=== PATIENT | female | born 1930 | race Caucasian/White ===

== ENCOUNTER 2017-09-17 14:26 | Outpatient (CLI) | payer MEDICARE | END 2017-09-17 14:27 | disposition home or self-care (01) | LOC: BICMAMMO 14:26 | PROVIDERS: ATTEND Internal Medicine | DX: Z08 Encounter for follow-up examination after completed treatment for malignant neoplasm (principal); N64.89 Other specified disorders of breast; Z85.3 Personal history of malignant neoplasm of breast; Z80.3 Family history of malignant neoplasm of breast | CPT/HCPCS: 76642; 77066; G0279 ==

== ENCOUNTER → 2017-09-27 | Day surgery (SDC) | payer MEDICARE | LOC: BICULT 08:50 | PROVIDERS: ATTEND Internal Medicine | PROC: 0H9U3ZX Drainage of Left Breast, Percutaneous Approach, Diagnostic (ICD-10-PCS; principal; 2017-09-27) | DX: C50.312 Malignant neoplasm of lower-inner quadrant of left female breast (principal) | CPT/HCPCS: 19100; 76942; 88305 ==

== ENCOUNTER 2017-10-22 17:05 | Outpatient (CLI) | payer MEDICARE ==
[2017-10-22 17:50] LABS: #Eosinphils 0.1 thou/uL (0.0-0.7); #Lymphocytes 1.1 thou/uL (1.20-3.40); #Monocytes 0.6 thou/uL (0.11-0.59); #Neutrophils 3.4 thou/uL (1.40-6.50); %Basophils 0.6 % (0.0-1.0); %Eosinophils 2.6 % (0.0-10.0); %Lymphocytes 21.6 % (21.0-51.0); %Monocytes 10.9 % (0.0-10.0); %Neutrophils 64.4 % (42.0-75.0); Hemoglobin 12.4 g/dL (12.0-16.0); Mean Corpuscular HGB CONC 33.7 g/dL (32.0-36.0); Mean Corpuscular Hemoglobin 30.8 pg (27.0-31.0); Mean Corpuscular Volume 91.2 fl (81.0-99.0); Mean Platelet Volume 6.7 fL (7.4-10.4); Platelet Count 194 thou/uL (130-400); RBC Distribution Width 12.2 % (11.5-14.5); Red Blood Cell (RBC) Count 4.04 mill/uL (4.20-5.40); White Blood Cell (WBC) Count 5.2 thou/uL (4.8-10.8)
[2017-10-22 18:11] LABS: ALT (SGPT) 11 U/L (8-55); AST (SGOT) 22 U/L (5-34); Albumin 4.2 g/dL (3.4-4.8); Alkaline Phosphatase 72 U/L (40-150); Anion Gap 10 mmol/L (10-20); BUN (Urea Nitrogen) 13 mg/dL (9.8-20.1); Bilirubin, Total 0.4 mg/dL (0.2-1.2); Calc. Creatinine Clearance 0 mL/min (70-130); Carbon Dioxide 27 mmol/L (23-31); Chloride 102 mmol/L (98-107); Estimated GFR-MDRD 39; Globulin 3.3 g/dL (2.4-3.5); Glucose 101 mg/dL (83-110); Potassium 4.3 mmol/L (3.5-5.1); Protein, Total 7.5 g/dL (6.0-8.3); Sodium 135 mmol/L (136-145)
--- NOTE | 2017-10-23 23:48 | EKG ---
Test Reason : Blood Pressure : / mmHG Vent. Rate : 065 BPM Atrial Rate : 065 BPM P-R Int : 138 ms QRS Dur : 080 ms QT Int : 424 ms P-R-T Axes : 064 -26 041 degrees QTc Int : 440 ms Normal sinus rhythm Normal ECG No previous ECGs available Confirmed by EMILY CARLOS, DR. Robles ([id number]) on 10/23/2017 11:48:00 PM Referred By: TIAGO Confirmed By:DR. Travis DIAZ MD
== END 2017-10-22 17:06 | disposition home or self-care (01) ==
LOC: LABBT 17:05
PROVIDERS: ATTEND Surgery
DX: Z01.818 Encounter for other preprocedural examination (principal); C50.912 Malignant neoplasm of unspecified site of left female breast
CPT/HCPCS: 80053; 85025; 93005; 93010

== ENCOUNTER 2017-10-22 17:15 | Inpatient (IN) | payer MEDICARE ==
[2017-10-22 17:23] VITALS: BMI 21.5
[2017-10-24] MEDS ORDERED: Lidocaine 2% 10 ML INJ ONE (11:47)
[2017-10-24] MEDS ORDERED: Bupivacaine/Epinephrine 0.25% 30 ML VIAL ONE (11:47)
[2017-10-24] MEDS ORDERED: Isosulfan Blue 50 MG/5 ML VIAL ONE (11:47)
[2017-10-24] MEDS ORDERED: Fentanyl 100 MCG/2 ML VIAL ONE (11:58)
[2017-10-24] MEDS ORDERED: Midazolam HCl 2 mg/2 ml Vial ONE (11:58)
[2017-10-24] MEDS ORDERED: Dexamethasone 20 MG/5 ML VIAL ONE (12:07)
[2017-10-24] MEDS ORDERED: PROPOFOL 200 MG/20 ML VIAL ONE (12:07)
[2017-10-24] MEDS ORDERED: Esmolol 100 MG/10 ML VIAL ONE (12:07)
[2017-10-24] MEDS ORDERED: Ondansetron HCl/PF 4 MG/2 ML Vial ONE (12:07)
[2017-10-24] MEDS ORDERED: Ketorolac Tromethamine 30 MG/ML VIAL ONE (12:07)
[2017-10-24] MEDS ORDERED: Metoclopramide HCl 10 MG/2 ML VIAL ONE (12:07)
[2017-10-24] MEDS ORDERED: Lidocaine 1% PF 5 ML VIAL ONE (12:07)
--- NOTE | 2017-10-24 12:22 | NM ---
RADIONUCLIDE LYMPHOSCINTIGRAPHY LEFT BREAST: History: Left breast cancer. FINDINGS: Sulfur colloid injected at the periareolar skin of the left breast is seen on imaging. Imaging sergio d out to 3 hours shows no focal uptake at the left axilla or mediastinum. IMPRESSION: Nonvisualization of left breast sentinel lymph node at 3 hours. POS: [facility]
[2017-10-24] MEDS ORDERED: Dextrose 50% Abboject 50 ML SYRINGE SLOW IVP PRN (13:42)
[2017-10-24] MEDS ORDERED: Ondansetron HCl/PF 4 MG/2 ML Vial IVP PRN (13:42)
[2017-10-24] MEDS ORDERED: HYDROcodone/Acetaminophen 10/325 mg Tablet PO PRN (13:42)
[2017-10-24] MEDS ORDERED: Dextrose 5% in Water 1,000 ML IV PRN (13:42)
[2017-10-24] MEDS ORDERED: Promethazine HCl 25 MG/ML VIAL IM PRN (13:42)
[2017-10-24] MEDS ORDERED: hydrALAZINE 20 MG/ML VIAL SLOW IVP PRN (13:42)
[2017-10-24] MEDS ORDERED: Morphine 4 MG/ML VIAL SLOW IVP PRN ×2 (13:42)
--- NOTE | 2017-10-24 13:55 | OP ---
DATE OF PROCEDURE: 10/24/2017 PREOPERATIVE DIAGNOSIS: Recurrent left breast cancer. SURGEON: Aroldo Salas M.D. PROCEDURE PERFORMED: Attempted sentinel node biopsy and left total mastectomy. INDICATIONS: This is an 87-year-old female who has had a previous lumpectomy and axillary dissection about 20 years ago for breast cancer and had an abnormal mammogram. 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 FINDINGS: No sentinel nodes were found. In fact, no nodes were left in the axilla, so just a total mastectomy was performed. PROCEDURE IN DETAIL: After informed consent was obtained, the patient had undergone placement of rad ionucleotide in the Nuclear Medicine Department. They waited for many hours, really never saw any ac tivity in the axilla. She was taken to the operating room where she underwent general endotracheal a nesthesia, injected 3 mL of Lymphazurin subareola. Her breast and axilla were prepped and draped in the usual fashion. A Neoprobe was used with baseline counts of 12. The highest I could find was 25. I looked for a node. The proposed mastectomy was drawn out. An incision made in the lateral aspec t of this area, traced it down to the area. Really there was nothing to dissect out. All the nodes were basically gone. So, I really could not do a sentinel node. An elliptical incision was performe d utilizing the plasma blade and a plane developed between subcutaneous tissue and the breast tissue utilizing the plasma blade to the level of clavicle superior, sternum medially, latissimus lateral an d the rectus inferiorly. It was then removed from the pectoralis muscle to include the pectoralis fa scia utilizing the plasma blade. Hemostasis achieved with the plasma blade. The breast was marked w ith a suture superior, sent to pathology for further analysis. Hemostasis was achieved with plasma b lade. The chest was thoroughly irrigated with saline. Hemostasis assured. Two drains were placed a nd brought out through separate stab wounds. The subcu reapproximated with interrupted 3-0 Vicryl. Skin closed with a running subcuticular 4-0 Rapide. Steri-Strips applied. Sterile bandage applied. The patient tolerated the procedure well and was transferred to recovery in good condition. Sponge and needle count verified correct x2.
[2017-10-24] MEDS: D5 1/2 NS w/20 mEq KCL 1,000 ML IV SCH (16:34)
[2017-10-24] MEDS: Lactated Ringer's 1,000 ML IV SCH (16:35)
[2017-10-24] MEDS: HYDROcodone/Acetaminophen 10/325 mg Tablet PO PRN (16:39)
[2017-10-24] MEDS: Docusate 100 MG CAP PO SCH (22:03)
[2017-10-25] MEDS: HYDROcodone/Acetaminophen 10/325 mg Tablet PO PRN (00:29)
[2017-10-25] MEDS: Lactated Ringer's 1,000 ML IV SCH (04:12)
[2017-10-25 05:45] LABS: #Lymphocytes 0.4 thou/uL (1.20-3.40); #Monocytes 0.8 thou/uL (0.11-0.59); #Neutrophils 8.8 thou/uL (1.40-6.50); %Basophils 0.2 % (0.0-1.0); %Eosinophils 0.1 % (0.0-10.0); %Lymphocytes 4.1 % (21.0-51.0); %Monocytes 7.8 % (0.0-10.0); %Neutrophils 87.9 % (42.0-75.0); Hemoglobin 10.6 g/dL (12.0-16.0); Mean Corpuscular HGB CONC 33.6 g/dL (32.0-36.0); Mean Corpuscular Hemoglobin 30.9 pg (27.0-31.0); Mean Corpuscular Volume 92.1 fl (81.0-99.0); Mean Platelet Volume 6.9 fL (7.4-10.4); Platelet Count 181 thou/uL (130-400); RBC Distribution Width 12.1 % (11.5-14.5); Red Blood Cell (RBC) Count 3.44 mill/uL (4.20-5.40)
[2017-10-25 06:08] LABS: Anion Gap 10 mmol/L (10-20); BUN (Urea Nitrogen) 19 mg/dL (9.8-20.1); Calc. Creatinine Clearance 26 mL/min (70-130); Calcium 8.5 mg/dL (7.8-10.44); Carbon Dioxide 24 mmol/L (23-31); Chloride 102 mmol/L (98-107); Estimated GFR-MDRD 38; Glucose 131 mg/dL (83-110); Potassium 4.3 mmol/L (3.5-5.1); Sodium 132 mmol/L (136-145)
[2017-10-25] MEDS: D5 1/2 NS w/20 mEq KCL 1,000 ML IV SCH (07:51)
[2017-10-25] MEDS ORDERED: Famotidine 20 MG TAB PO SCH (09:00)
[2017-10-25] MEDS ORDERED: Enoxaparin Sodium 30 MG/0.3 ML SYRINGE SC SCH (09:00)
[2017-10-25] MEDS: Docusate 100 MG CAP PO SCH (09:50)
[2017-10-25 11:46] VITALS: BP 152/76; TEMP 97.6
--- NOTE | 2017-10-30 09:35 | DIS ---
DISCHARGE DIAGNOSIS: Recurrent left breast cancer. PROCEDURES DURING ADMISSION: Left total mastectomy with attempted sentinel node biopsy. HOSPITAL COURSE: The patient was admitted, taken to the operating room. We attempted to do a sentin el node, but she has had a previous axillary dissection. The radionucleotide did not show any nodes and I could not find any with both the Neoprobe nor with injection of Lymphazurin, so we just did a t otal mastectomy. Postoperatively, she has done well. Pain is minimal. Drain output is low. She is now discharged home in good condition on hydrocodone and Zofran. She will follow up with me in 2 we eks.
== END 2017-10-25 15:10 | disposition home or self-care (01) | DRG 583 ==
LOC: SURG A 10-24 06:46
PROVIDERS: ADMIT Surgery; ATTEND Surgery
PROC: 0HTU0ZZ Resection of Left Breast, Open Approach (ICD-10-PCS; principal; 2017-10-24)
DX: C50.912 Malignant neoplasm of unspecified site of left female breast (principal); Z85.3 Personal history of malignant neoplasm of breast; Z79.82 Long term (current) use of aspirin; E03.9 Hypothyroidism, unspecified; I10 Essential (primary) hypertension; E78.00 Pure hypercholesterolemia, unspecified; K21.9 Gastro-esophageal reflux disease without esophagitis; Z92.21 Personal history of antineoplastic chemotherapy; Z88.0 Allergy status to penicillin; Z88.8 Allergy status to other drugs, medicaments and biological substances; Z17.0 Estrogen receptor positive status [ER+]; Z01.818 Encounter for other preprocedural examination
CPT/HCPCS: 36415; 78195; 80048; 80053; 85025; 88307; 93005; 93010; A9541; J0360; J1100; J1650; J1885; J1956; J2001; J2250; J2270; J2405; J2704; J2765; J3010; Q9968

== ENCOUNTER 2017-10-26 14:04 | Emergency (ER) | payer MEDICARE | END 2017-10-26 15:30 | disposition home or self-care (01) | LOC: ERS 14:04 | DX: L76.21 Postprocedural hemorrhage of skin and subcutaneous tissue following a dermatologic procedure (principal); E03.9 Hypothyroidism, unspecified; K21.9 Gastro-esophageal reflux disease without esophagitis; E78.5 Hyperlipidemia, unspecified; I10 Essential (primary) hypertension; F41.9 Anxiety disorder, unspecified; G62.9 Polyneuropathy, unspecified; Z85.3 Personal history of malignant neoplasm of breast; Z79.82 Long term (current) use of aspirin; Z79.899 Other long term (current) drug therapy | CPT/HCPCS: 99283 ==

== ENCOUNTER 2017-11-20 09:11 | Outpatient (CLI) | payer MEDICARE ==
--- NOTE | 2017-11-20 12:06 | CT ---
CT THORAX WITH IV CONTRAST CT ABDOMEN AND PELVIS WITH IV CONTRAST: Date: 11-20-17 History: Malignant neoplasm left breast. Comparison: None available. FINDINGS: CT THORAX: Post-surgical changes related to left mastectomy are noted. There is a rounded area of parenchymal opacity with associated calcifications seen in the left lung. Parenchymal opacity was seen in this region on prior chest x-rays obtained from [facility] [place] on 08-31-15 as well as 08-25-14. Mild pleural and parenchymal scarring is seen in each lung apex. There is mild dependent atelectasis present posteriorly and at the right lung base. No discrete pulm onary nodule, mass, or pleural effusion is identified. No enlarged lymph nodes are seen by CT size criteria. Vascular calcifications are seen in the coronary arteries as well as involving the thoracic aorta. No lytic or sclerotic osseous lesions are identified. CT ABDOMEN AND PELVIS: There is geographic area of diminished attenuation within the left hepatic lobe which could be relate d to fatty infiltration. Also within the left hepatic lobe and adjacent to the falciform ligament, th ere is a small subcentimeter low density focus noted which is nonspecific. There is a subcentimeter too small to characterize hypodense lesion within the superior pole right ki dney. The spleen, pancreas, bilateral adrenal glands, left kidney, opacified bowel, and urinary bladder dem onstrate a normal CT appearance. A small amount of retained fecal material is seen throughout the col on. Vascular calcifications are seen in the abdominal aorta and iliac arteries. Surgical clips are seen i n a right paracaval location and adjacent to the right common iliac artery. No enlarged lymph nodes are seen by CT size criteria. There is no free fluid or fluid collection seen in the abdomen or pelvis. The uterus is not visualized likely related to prior hysterectomy. There is anterolisthesis of L4 on L5, probably related to facet degenerative changes at this level. N o lytic or osseous lesions are seen. There is a sclerotic density seen within the right sacral ala, p robably related to a bone island. IMPRESSION: 1. Parenchymal lung changes left lung apex with associated calcifications. Parenchymal opacity was se en in this region on prior chest x-rays. Findings are likely related to asymmetric biapical pleural a nd parenchymal scarring with calcifications in the left lung apex. 2. No CT findings to suggest metastatic disease. 3. Post-surgical changes related to left mastectomy. 4. Post-surgical changes of the abdomen. 5. Subcentimeter too small to characterize hypodense lesion in the left hepatic lobe with slight dimi nished attenuation left hepatic lobe which may be related to fatty infiltration. 6. Too small to characterize hypodense lesion right kidney. 7. Hysterectomy. 8. Grade I anterolisthesis of L4 on L5. POS: [facility]
--- NOTE | 2017-11-20 14:18 | NM ---
WHOLE BODY BONE SCAN: 11/20/2017 HISTORY: Malignant neoplasm, lower inner quadrant, left breast. RADIOPHARMACEUTICAL: Technetium 99m labeled MDP 32 millicuries IV. VIEWS OBTAINED: Anterior-posterior whole body. COMPARISON: 04/01/2003 FINDINGS: There is mild nonspecific soft tissue uptake involving the right breast. There is a focal area of increased uptake involving the left knee, likely degenerative in origin. Th e previously described area of uptake within the left sacrum is not well delineated on this exam. Th ere is mildly increased uptake in the shoulders bilaterally, likely in a degenerative pattern as well . There are no additional areas of abnormal uptake of radiotracer seen throughout the visualized axi llary or appendicular skeleton. Normal activity is seen in the bilateral kidneys and urinary bladder . IMPRESSION: No scintigraphic findings to suggest osseous metastatic disease. POS: [facility]
== END 2017-11-20 09:12 | disposition home or self-care (01) ==
LOC: CT 09:11
PROVIDERS: ATTEND Internal Medicine Hematology & Oncology
DX: C50.312 Malignant neoplasm of lower-inner quadrant of left female breast (principal); I70.0 Atherosclerosis of aorta; K76.9 Liver disease, unspecified; N28.9 Disorder of kidney and ureter, unspecified; M43.16 Spondylolisthesis, lumbar region; J98.4 Other disorders of lung; R91.8 Other nonspecific abnormal finding of lung field; Z98.890 Other specified postprocedural states; Z90.12 Acquired absence of left breast and nipple; Z90.710 Acquired absence of both cervix and uterus
CPT/HCPCS: 71260; 74177; 78306; 82565; A9503

== ENCOUNTER 2018-02-13 14:56 | Outpatient (CLI) | payer MEDICARE | END 2018-02-13 14:57 | disposition home or self-care (01) | LOC: BICMAMMO 14:56 | PROVIDERS: ATTEND Internal Medicine Hematology & Oncology | DX: Z13.820 Encounter for screening for osteoporosis (principal); N95.9 Unspecified menopausal and perimenopausal disorder; C50.919 Malignant neoplasm of unspecified site of unspecified female breast; M85.88 Other specified disorders of bone density and structure, other site | CPT/HCPCS: 77080 ==

== ENCOUNTER 2018-09-30 14:04 | Outpatient (CLI) | payer MEDICARE ==
--- NOTE | 2018-09-30 15:04 | MMO ---
Right Breast MAMMO Unilat Diag DDI RT+LILIYA. CLINICAL HISTORY: Patient is 88 years old and is seen for diagnostic exam. The patient has the following family history of breast cancer: mother, at age 79. The patient has a history of malignant (generic) in the left breast in January,. The patient has a history of right Stereotatic Biopsy in June, - benign and left Lumpectomy in January, - malignant. VIEWS: The views performed were: right craniocaudal with tomosynthesis; right mediolateral oblique with tomosynthesis; and right mediolateral. FILMS COMPARED: The present examination has been compared to prior imaging studies performed at [facility] on 08/21/2013, 08/25/2014, 08/31/2015, 09/01/2016 and 09/17/2017. MAMMOGRAM FINDINGS: The breast is heterogeneously dense, which could obscure a lesion on mammography. Finding 1: There is a stable area of skin thickening seen in the right breast. Finding 2: There is a stable biopsy clip seen in the right breast. Finding 3: There are benign appearing calcifications seen in the right breast. There are no suspicious masses, suspicious calcifications, or new areas of architectural distortion. IMPRESSION: THERE IS NO MAMMOGRAPHIC EVIDENCE OF MALIGNANCY. A ROUTINE FOLLOW-UP MAMMOGRAM IN 1 YEAR IS RECOMMENDED. THE RESULTS OF THIS EXAM WERE SENT TO THE PATIENT. ACR BI-RADS Category 2 - Benign finding MAMMOGRAPHY NOTE: 1. A negative mammogram report should not delay a biopsy if a dominant of clinically suspicious mass is present. 2. Approximately 10% to 15% of breast cancers are not detected by mammography. 3. Adenosis and dense breasts may obscure an underlying neoplasm.
== END 2018-09-30 14:05 | disposition home or self-care (01) ==
LOC: BICMAMMO 14:04
PROVIDERS: ATTEND Internal Medicine Hematology & Oncology
DX: C50.312 Malignant neoplasm of lower-inner quadrant of left female breast (principal); Z80.3 Family history of malignant neoplasm of breast; Z98.890 Other specified postprocedural states
CPT/HCPCS: 77065; G0279

== ENCOUNTER 2019-02-20 15:26 | Outpatient (CLI) | payer MEDICARE ==
--- NOTE | 2019-02-20 16:14 | BD ---
Exam: DEXA Bone Density 02/20/19 HISTORY: 89-year-old female with postmenopausal screening for osteoporosis. FINDINGS: Right hip: BMD (g/cm2) T-SCORE Neck: 0.728 -1.1 Total: 0.803 -1.1 Left hip: Neck: 0.675 -1.6 Total: 0.853 -0.7 The ten year fracture risk for a major osteoporotic fracture is 12% and for hip fracture is 3.4%. Impression: Osteopenia. POS: [facility]
== END 2019-02-20 15:27 | disposition home or self-care (01) ==
LOC: BICMAMMO 15:26
PROVIDERS: ATTEND Internal Medicine Hematology & Oncology
DX: Z13.820 Encounter for screening for osteoporosis (principal); T38.6X5A Adverse effect of antigonadotrophins, antiestrogens, antiandrogens, not elsewhere classified, initial encounter; M85.851 Other specified disorders of bone density and structure, right thigh; M85.852 Other specified disorders of bone density and structure, left thigh
CPT/HCPCS: 77080

== ENCOUNTER 2019-02-21 14:59 | Outpatient (CLI) | payer MEDICARE ==
[~2019-02-21 14:59] MED LIST: Gadobenate Dimeglumine 529 MG/1 ML (20ML VIAL) ONE
--- NOTE | 2019-02-21 16:51 | MRI ---
MRI OF BRAIN WITH AND WITHOUT CONTRAST: 02/21/19 INDICATIONS: Dizziness. FINDINGS: Mild cortical volume loss. Mild chronic ischemic white matter change. No evidence of restricted diffu [place]. No mass, edema or acute infarct apparent. Images of the internal auditory canals was performed with IAC protocol. 3D T2 acquisition shows normal appearing 7th and 8th cranial nerves. Postcontrast images show no abnormal enhancement in either internal auditory canal. There is no evide nce of acoustic schwannoma. No abnormal enhancement in the brain. IMPRESSION: Mild cortical volume loss and mild chronic ischemic white matter changes in both cerebral hemispheres . No acute process. Unremarkable internal auditory canals. POS: [facility]
== END 2019-02-21 15:00 | disposition home or self-care (01) ==
LOC: BICMRI 14:59
PROVIDERS: ATTEND Specialist
DX: R42 Dizziness and giddiness (principal); I67.82 Cerebral ischemia
CPT/HCPCS: 70553; 82565; A9577

== ENCOUNTER 2020-08-18 21:01 | Inpatient (IN) | payer MEDICARE ==
[2020-08-18 21:58] LABS: #Lymphocytes 0.8 thou/uL (1.20-3.40); #Monocytes 0.6 thou/uL (0.11-0.59); #Neutrophils 5.7 thou/uL (1.40-6.50); %Basophils 0.4 % (0.0-1.0); %Eosinophils 0.5 % (0.0-10.0); %Lymphocytes 10.9 % (21.0-51.0); %Monocytes 8.9 % (0.0-10.0); %Neutrophils 79.3 % (42.0-75.0); Hemoglobin 11.8 g/dL (12.0-16.0); Mean Corpuscular Hemoglobin 35.1 pg (27.0-31.0); Mean Platelet Volume 7.2 fL (7.4-10.4); Platelet Count 168 thou/uL (130-400); RBC Distribution Width 11.9 % (11.5-14.5); Red Blood Cell (RBC) Count 3.36 mill/uL (4.20-5.40); White Blood Cell (WBC) Count 7.2 thou/uL (4.8-10.8)
[2020-08-18 22:26] LABS: ALT (SGPT) 17 U/L (8-55); AST (SGOT) 18 U/L (5-34); Alkaline Phosphatase 81 U/L (40-110); Anion Gap 15 mmol/L (10-20); BUN (Urea Nitrogen) 17 mg/dL (9.8-20.1); Bilirubin, Total 0.8 mg/dL (0.2-1.2); Calc. Creatinine Clearance 0 mL/min (70-130); Carbon Dioxide 23 mmol/L (23-31); Chloride 100 mmol/L (98-107); Globulin 3.3 g/dL (2.4-3.5); Glucose 117 mg/dL (83-110); Potassium 3.9 mmol/L (3.5-5.1); Protein, Total 7.3 g/dL (5.8-8.1); Sodium 134 mmol/L (136-145)
[2020-08-18] MEDS ORDERED: Acetaminophen 325 MG TAB ONE (23:50)
[2020-08-18 23:59] LABS: CKMB 1.1 ng/mL (0-6.6)
[2020-08-19] MEDS: Sodium Chloride 0.9% 1,000 ML IV SCH ×2 (02:20→11:36)
[2020-08-19 02:29] LABS: Troponin I 0.056 ng/mL (< 0.028)
[2020-08-19] MEDS ORDERED: Aspirin Chewable 81 MG TAB ONE (04:10)
[2020-08-19 04:33] LABS: SARS-CoV-2 PCR by NAA Not Detected (NotDetected)
[2020-08-19 05:05] LABS: Bacteria/HPF 2+ HPF (None Seen); Bilirubin Negative (Negative); Blood, Urine Negative (Negative); Clarity Turbid (Clear); Glucose, Urine (Dipstick) Normal (Negative); Ketone, Urine Trace mg/dL (Negative); Leukocyte 500 Leu/uL (Negative); Nitrite Negative (Negative); Protein, Urine (Dipstick) 10 mg/dL (Neg-Trace); RBC/HPF 0-3 HPF (0-3); Specific Gravity, Urine 1.013 (1.002-1.036); Squamous Epithelial None Seen HPF (0-3); Urobilinogen Normal mg/dL (Less than 2); WBC/HPF Greater than 50 HPF (0-3); pH, Urine 6.5 (5.0-9.0)
[2020-08-19 05:17] LABS: Troponin I 0.076 ng/mL (< 0.028)
[2020-08-19] MEDS ORDERED: Ondansetron ODT 4 MG TAB PO PRN (06:31)
[2020-08-19] MEDS ORDERED: Ondansetron PF 4 MG/2 ML Vial IVP PRN (06:31)
[2020-08-19] MEDS ORDERED: Enoxaparin Sodium 40 MG/0.4 ML SYRINGE ONE ×2 (08:46→08:47)
[2020-08-19] MEDS ORDERED: cefTRIAXone\\ROCEPHIN 1 GM VIAL ONE (08:46)
[2020-08-19] MEDS: Enoxaparin Sodium 40 MG/0.4 ML SYRINGE SC SCH (08:54)
[2020-08-19] MEDS: cefTRIAXone\\ROCEPHIN 1 GM in Sodium Chloride 0.9% 100 ML IVPB SCH (09:00)
[2020-08-19 11:04] LABS: CKMB 1.2 ng/mL (0-6.6)
[2020-08-19] MEDS ORDERED: Acetaminophen 325 MG TAB ONE (11:37)
[2020-08-19] MEDS: Acetaminophen 325 MG TAB PO PRN ×2 (11:42→17:27)
[2020-08-19 15:55] VITALS: BMI 23.1
[2020-08-19] MEDS: Divalproex Sodium 250 MG (DR) TAB PO SCH (21:02)
[2020-08-19] MEDS: Atorvastatin Calcium 10 MG TAB PO SCH (21:02)
[2020-08-19] MEDS: Donepezil HCl 5 MG TAB PO SCH (21:02)
[2020-08-19] MEDS: Gabapentin 100 MG CAP PO SCH (21:03)
[2020-08-19] MEDS: Melatonin 3 MG TAB PO SCH (21:04)
[2020-08-20 04:13] LABS: #Basophils 0.1 thou/uL (0.0-0.2); #Eosinphils 0.2 thou/uL (0.0-0.7); #Lymphocytes 0.9 thou/uL (1.20-3.40); #Monocytes 0.8 thou/uL (0.11-0.59); #Neutrophils 4.2 thou/uL (1.40-6.50); %Basophils 1.2 % (0.0-1.0); %Eosinophils 3.8 % (0.0-10.0); %Lymphocytes 13.8 % (21.0-51.0); %Monocytes 13.6 % (0.0-10.0); %Neutrophils 67.7 % (42.0-75.0); Hemoglobin 11.8 g/dL (12.0-16.0); Mean Corpuscular HGB CONC 33.5 g/dL (32.0-36.0); Mean Corpuscular Hemoglobin 33.7 pg (27.0-31.0); Platelet Count 161 thou/uL (130-400); RBC Distribution Width 12.1 % (11.5-14.5); Red Blood Cell (RBC) Count 3.48 mill/uL (4.20-5.40); White Blood Cell (WBC) Count 6.2 thou/uL (4.8-10.8)
[2020-08-20 04:32] LABS: Anion Gap 12 mmol/L (10-20); BUN (Urea Nitrogen) 14 mg/dL (9.8-20.1); Calc. Creatinine Clearance 29 mL/min (70-130); Calcium 8.4 mg/dL (7.8-10.44); Carbon Dioxide 24 mmol/L (23-31); Chloride 104 mmol/L (98-107); Glucose 100 mg/dL (83-110); Sodium 136 mmol/L (136-145)
[2020-08-20] MEDS: Acetaminophen 325 MG TAB PO PRN (08:09)
[2020-08-20] MEDS: hydrALAZINE 20 MG/ML VIAL SLOW IVP PRN (08:10)
[2020-08-20] MEDS ORDERED: Fluticasone Propionate Nasal Spray 16 gm Bottle NASAL PRN (08:40)
[2020-08-20] MEDS ORDERED: Non-Formulary Item 1 EACH (Magnesium [Magnesium] 250 MG Tablet) PO SCH (09:00)
[2020-08-20] MEDS ORDERED: Cyanocobalamin (Vitamin B-12) 1,000 MCG TAB PO SCH (09:00)
[2020-08-20] MEDS ORDERED: Non-Formulary Item 1 EACH (Cyanocobalamin (Vitamin B-12) [Vitamin B12] 2,500 MCG Tablet) PO SCH (09:00)
[2020-08-20] MEDS: Enoxaparin Sodium 40 MG/0.4 ML SYRINGE SC SCH (10:10)
[2020-08-20] MEDS: Magnesium Oxide 250 MG TAB PO SCH (10:11)
[2020-08-20] MEDS: Amlodipine 5 MG TAB PO SCH (10:11)
[2020-08-20] MEDS: Aspirin 81 mg Enteric Coated Tablet PO SCH (10:11)
[2020-08-20] MEDS: Gabapentin 100 MG CAP PO SCH ×2 (10:12→20:06)
[2020-08-20] MEDS: Anastrozole 1 MG TAB PO SCH (10:12)
[2020-08-20] MEDS: Divalproex Sodium 250 MG (DR) TAB PO SCH ×2 (10:25→20:07)
[2020-08-20] MEDS: Levothyroxine Sodium 50 MCG TAB PO SCH (10:26)
[2020-08-20] MEDS: cefTRIAXone\\ROCEPHIN 1 GM in Sodium Chloride 0.9% 100 ML IVPB SCH (10:27)
[2020-08-20 10:50] LABS: Thyroid Stimulating Hormone 2.3948 uIU/mL (0.35-4.94)
[2020-08-20 11:25] LABS: Vitamin B12 Greater than 2000 pg/mL (211-911)
[2020-08-20] MEDS: Aspirin/APAP/Caffeine Tab (Excedrin Migraine) PO PRN (14:01)
[2020-08-20] MEDS: Atorvastatin Calcium 10 MG TAB PO SCH (20:07)
[2020-08-20] MEDS: Donepezil HCl 5 MG TAB PO SCH (20:07)
[2020-08-20] MEDS: Melatonin 3 MG TAB PO SCH (20:08)
[2020-08-20] MEDS: Mirtazapine 15 MG TAB PO SCH (20:08)
[2020-08-21] MEDS: Aspirin/APAP/Caffeine Tab (Excedrin Migraine) PO PRN ×2 (01:51→11:48)
[2020-08-21] MEDS: hydrALAZINE 20 MG/ML VIAL SLOW IVP PRN (05:44)
[2020-08-21] MEDS ORDERED: hydrALAZINE 20 MG/ML VIAL SLOW IVP PRN (08:32)
[2020-08-21] MEDS: Gabapentin 100 MG CAP PO SCH ×2 (08:37→20:16)
[2020-08-21] MEDS: Enoxaparin Sodium 30 MG/0.3 ML SYRINGE SC SCH (08:37)
[2020-08-21] MEDS: Amlodipine 5 MG TAB PO SCH (08:38)
[2020-08-21] MEDS: Magnesium Oxide 250 MG TAB PO SCH (08:38)
[2020-08-21] MEDS: Divalproex Sodium 250 MG (DR) TAB PO SCH ×2 (08:38→20:17)
[2020-08-21] MEDS: Anastrozole 1 MG TAB PO SCH (08:38)
[2020-08-21] MEDS: Aspirin 81 mg Enteric Coated Tablet PO SCH (08:39)
[2020-08-21] MEDS: cefTRIAXone\\ROCEPHIN 1 GM in Sodium Chloride 0.9% 100 ML IVPB SCH (08:39)
[2020-08-21] MEDS: Levothyroxine Sodium 50 MCG TAB PO SCH (08:39)
[2020-08-21] MEDS ORDERED: Polyethylene Glycol 3350 17 GM Packet PO PRN (11:46)
[2020-08-21] MEDS: Senokot S 8.6-50 MG TAB PO PRN (11:57)
[2020-08-21] MEDS: Acetaminophen 325 MG TAB PO PRN (18:56)
[2020-08-21] MEDS: Donepezil HCl 5 MG TAB PO SCH (20:17)
[2020-08-21] MEDS: Melatonin 3 MG TAB PO SCH (20:18)
[2020-08-21] MEDS: Atorvastatin Calcium 10 MG TAB PO SCH (20:18)
[2020-08-21] MEDS: Mirtazapine 15 MG TAB PO SCH (20:18)
[2020-08-22] MEDS: hydrALAZINE 20 MG/ML VIAL SLOW IVP PRN (05:47)
[2020-08-22] MEDS: cefTRIAXone\\ROCEPHIN 1 GM in Sodium Chloride 0.9% 100 ML IVPB SCH (08:48)
[2020-08-22] MEDS: Aspirin 81 mg Enteric Coated Tablet PO SCH (08:49)
[2020-08-22] MEDS: Amlodipine 5 MG TAB PO SCH (08:49)
[2020-08-22] MEDS: Anastrozole 1 MG TAB PO SCH (08:49)
[2020-08-22] MEDS: Enoxaparin Sodium 30 MG/0.3 ML SYRINGE SC SCH (08:50)
[2020-08-22] MEDS: Divalproex Sodium 250 MG (DR) TAB PO SCH ×2 (08:50→21:05)
[2020-08-22] MEDS: Levothyroxine Sodium 50 MCG TAB PO SCH (08:51)
[2020-08-22] MEDS: Polyethylene Glycol 3350 17 GM Packet PO SCH (08:51)
[2020-08-22] MEDS: Magnesium Oxide 250 MG TAB PO SCH (08:51)
[2020-08-22] MEDS: Gabapentin 100 MG CAP PO SCH ×2 (08:51→21:07)
[2020-08-22] MEDS: Aspirin/APAP/Caffeine Tab (Excedrin Migraine) PO PRN (10:17)
[2020-08-22] MEDS: Atorvastatin Calcium 10 MG TAB PO SCH (21:04)
[2020-08-22] MEDS: Donepezil HCl 5 MG TAB PO SCH (21:06)
[2020-08-22] MEDS: Senokot S 8.6-50 MG TAB PO PRN (21:08)
[2020-08-22] MEDS: Melatonin 3 MG TAB PO SCH (21:08)
[2020-08-22] MEDS: Mirtazapine 15 MG TAB PO SCH (21:08)
[2020-08-23] MEDS: Aspirin/APAP/Caffeine Tab (Excedrin Migraine) PO PRN ×2 (05:22→12:13)
[2020-08-23] MEDS ORDERED: Lisinopril 20 MG TAB PO SCH (09:00)
[2020-08-23] MEDS ORDERED: Lisinopril 5 MG TAB PO SCH ×2 (09:00)
[2020-08-23] MEDS: Anastrozole 1 MG TAB PO SCH (09:49)
[2020-08-23] MEDS: Aspirin 81 mg Enteric Coated Tablet PO SCH (09:50)
[2020-08-23] MEDS: Cephalexin 250 MG CAP PO SCH ×2 (09:50→21:10)
[2020-08-23] MEDS: Divalproex Sodium 250 MG (DR) TAB PO SCH ×2 (09:50→21:10)
[2020-08-23] MEDS: Enoxaparin Sodium 30 MG/0.3 ML SYRINGE SC SCH (09:51)
[2020-08-23] MEDS: Gabapentin 100 MG CAP PO SCH ×2 (09:51→21:12)
[2020-08-23] MEDS: Levothyroxine Sodium 50 MCG TAB PO SCH (09:51)
[2020-08-23] MEDS: Magnesium Oxide 250 MG TAB PO SCH (09:52)
[2020-08-23] MEDS: Acetaminophen 325 MG TAB PO PRN (09:52)
[2020-08-23] MEDS: Lisinopril 5 MG TAB PO SCH (09:52)
[2020-08-23] MEDS: Polyethylene Glycol 3350 17 GM Packet PO SCH (10:08)
[2020-08-23] MEDS: cefTRIAXone\\ROCEPHIN 1 GM in Sodium Chloride 0.9% 100 ML IVPB SCH (10:08)
[2020-08-23] MEDS: Donepezil HCl 5 MG TAB PO SCH (21:10)
[2020-08-23] MEDS: Mirtazapine 15 MG TAB PO SCH (21:12)
[2020-08-23] MEDS: Atorvastatin Calcium 10 MG TAB PO SCH (21:12)
[2020-08-23] MEDS: Melatonin 3 MG TAB PO SCH (21:12)
[2020-08-24] MEDS ORDERED: Metoprolol Tartrate 5 MG/5 ML VIAL IVP SCH (02:00)
[2020-08-24 02:08] LABS: #Basophils 0.1 thou/uL (0.0-0.2); #Eosinphils 0.6 thou/uL (0.0-0.7); #Lymphocytes 1.1 thou/uL (1.20-3.40); #Monocytes 0.8 thou/uL (0.11-0.59); #Neutrophils 3.6 thou/uL (1.40-6.50); %Basophils 1.1 % (0.0-1.0); %Eosinophils 9.8 % (0.0-10.0); %Lymphocytes 18.4 % (21.0-51.0); %Monocytes 12.7 % (0.0-10.0); Hemoglobin 12.4 g/dL (12.0-16.0); Mean Corpuscular HGB CONC 34.2 g/dL (32.0-36.0); Mean Corpuscular Hemoglobin 34.4 pg (27.0-31.0); Mean Platelet Volume 6.8 fL (7.4-10.4); Platelet Count 185 thou/uL (130-400); RBC Distribution Width 12.3 % (11.5-14.5); Red Blood Cell (RBC) Count 3.59 mill/uL (4.20-5.40); White Blood Cell (WBC) Count 6.2 thou/uL (4.8-10.8)
[2020-08-24 02:35] LABS: ALT (SGPT) 25 U/L (8-55); AST (SGOT) 29 U/L (5-34); Albumin 3.4 g/dL (3.4-4.8); Alkaline Phosphatase 94 U/L (40-110); Anion Gap 16 mmol/L (10-20); BUN (Urea Nitrogen) 23 mg/dL (9.8-20.1); Bilirubin, Total 0.5 mg/dL (0.2-1.2); Calc. Creatinine Clearance 24 mL/min (70-130); Calcium 8.2 mg/dL (7.8-10.44); Carbon Dioxide 20 mmol/L (23-31); Chloride 97 mmol/L (98-107); Globulin 3.2 g/dL (2.4-3.5); Glucose 100 mg/dL (83-110); Magnesium 2.2 mg/dL (1.6-2.6); Potassium 4.1 mmol/L (3.5-5.1); Protein, Total 6.6 g/dL (5.8-8.1); Sodium 129 mmol/L (136-145)
[2020-08-24] MEDS ORDERED: Sodium Chloride 0.9% 1,000 ML IV SCH (04:00)
[2020-08-24] MEDS: Aspirin 81 mg Enteric Coated Tablet PO SCH (09:32)
[2020-08-24] MEDS: Aspirin/APAP/Caffeine Tab (Excedrin Migraine) PO PRN (09:32)
[2020-08-24] MEDS: Divalproex Sodium 250 MG (DR) TAB PO SCH ×2 (09:32→21:53)
[2020-08-24] MEDS: Cephalexin 250 MG CAP PO SCH ×2 (09:32→21:53)
[2020-08-24] MEDS: Gabapentin 100 MG CAP PO SCH ×2 (09:33→21:54)
[2020-08-24] MEDS: Anastrozole 1 MG TAB PO SCH (09:33)
[2020-08-24] MEDS: Lisinopril 5 MG TAB PO SCH (09:34)
[2020-08-24] MEDS: Levothyroxine Sodium 50 MCG TAB PO SCH (09:34)
[2020-08-24] MEDS: Magnesium Oxide 250 MG TAB PO SCH (09:35)
[2020-08-24] MEDS: Polyethylene Glycol 3350 17 GM Packet PO SCH (09:35)
[2020-08-24] MEDS: Enoxaparin Sodium 30 MG/0.3 ML SYRINGE SC SCH (09:35)
[2020-08-24] MEDS ORDERED: Amiodarone 200 MG TAB PO SCH (18:45)
[2020-08-24] MEDS ORDERED: Apixaban 5 MG TAB PO SCH (21:00)
[2020-08-24] MEDS: Atorvastatin Calcium 10 MG TAB PO SCH (21:53)
[2020-08-24] MEDS: Donepezil HCl 5 MG TAB PO SCH (21:53)
[2020-08-24] MEDS: Metoprolol Tartrate 25 MG TAB PO SCH (21:53)
[2020-08-24] MEDS: Apixaban 2.5 MG TAB PO SCH (21:54)
[2020-08-24] MEDS: Mirtazapine 15 MG TAB PO SCH (21:54)
[2020-08-24] MEDS: Melatonin 3 MG TAB PO SCH (21:54)
[2020-08-25 06:14] LABS: Anion Gap 16 mmol/L (10-20); BUN (Urea Nitrogen) 19 mg/dL (9.8-20.1); Calc. Creatinine Clearance 29 mL/min (70-130); Calcium 8.2 mg/dL (7.8-10.44); Carbon Dioxide 17 mmol/L (23-31); Chloride 102 mmol/L (98-107); Glucose 85 mg/dL (83-110); Potassium 4.5 mmol/L (3.5-5.1); Sodium 130 mmol/L (136-145)
[2020-08-25] MEDS: Divalproex Sodium 250 MG (DR) TAB PO SCH ×2 (09:47→20:13)
[2020-08-25] MEDS: Amiodarone 200 MG TAB PO SCH ×3 (09:47→20:16)
[2020-08-25] MEDS: Cephalexin 250 MG CAP PO SCH ×2 (09:47→20:12)
[2020-08-25] MEDS: Gabapentin 100 MG CAP PO SCH ×2 (09:48→20:14)
[2020-08-25] MEDS: Levothyroxine Sodium 50 MCG TAB PO SCH (09:48)
[2020-08-25] MEDS: Aspirin 81 mg Enteric Coated Tablet PO SCH (09:48)
[2020-08-25] MEDS: Metoprolol Tartrate 25 MG TAB PO SCH ×2 (09:49→20:17)
[2020-08-25] MEDS: Anastrozole 1 MG TAB PO SCH (09:49)
[2020-08-25] MEDS: Polyethylene Glycol 3350 17 GM Packet PO SCH ×2 (09:50→10:19)
[2020-08-25] MEDS: Apixaban 2.5 MG TAB PO SCH ×2 (09:50→20:12)
[2020-08-25] MEDS: Enoxaparin Sodium 30 MG/0.3 ML SYRINGE SC SCH (09:50)
[2020-08-25] MEDS: Magnesium Oxide 250 MG TAB PO SCH (09:50)
[2020-08-25] MEDS: Aspirin/APAP/Caffeine Tab (Excedrin Migraine) PO PRN (11:03)
[2020-08-25] MEDS: Mirtazapine 15 MG TAB PO SCH (20:13)
[2020-08-25] MEDS: Melatonin 3 MG TAB PO SCH (20:13)
[2020-08-25] MEDS: Donepezil HCl 5 MG TAB PO SCH (20:14)
[2020-08-25] MEDS: Atorvastatin Calcium 10 MG TAB PO SCH (20:14)
[2020-08-26] MEDS ORDERED: Metoprolol Tartrate 25 MG TAB PO SCH (09:00)
[2020-08-26] MEDS: Aspirin/APAP/Caffeine Tab (Excedrin Migraine) PO PRN (09:26)
[2020-08-26] MEDS: Magnesium Oxide 250 MG TAB PO SCH (09:26)
[2020-08-26] MEDS: Amiodarone 200 MG TAB PO SCH ×3 (09:26→20:40)
[2020-08-26] MEDS: Anastrozole 1 MG TAB PO SCH (09:26)
[2020-08-26] MEDS: Aspirin 81 mg Enteric Coated Tablet PO SCH (09:28)
[2020-08-26] MEDS: Levothyroxine Sodium 50 MCG TAB PO SCH (09:29)
[2020-08-26] MEDS: Divalproex Sodium 250 MG (DR) TAB PO SCH ×2 (09:29→20:39)
[2020-08-26] MEDS: Cephalexin 250 MG CAP PO SCH ×2 (09:29→20:38)
[2020-08-26] MEDS: Enoxaparin Sodium 30 MG/0.3 ML SYRINGE SC SCH (09:30)
[2020-08-26] MEDS: Apixaban 2.5 MG TAB PO SCH ×2 (09:30→20:40)
[2020-08-26] MEDS: Gabapentin 100 MG CAP PO SCH ×2 (09:30→20:38)
[2020-08-26] MEDS: Polyethylene Glycol 3350 17 GM Packet PO SCH (09:31)
[2020-08-26] MEDS: Senokot S 8.6-50 MG TAB PO PRN (14:48)
[2020-08-26] MEDS ORDERED: HYDROcodone/Acetaminophen 5/325 mg Tablet PO PRN (16:00)
[2020-08-26] MEDS: Mirtazapine 15 MG TAB PO SCH (20:39)
[2020-08-26] MEDS: Atorvastatin Calcium 10 MG TAB PO SCH (20:40)
[2020-08-26] MEDS: Donepezil HCl 5 MG TAB PO SCH (20:40)
[2020-08-26] MEDS: Amlodipine 5 MG TAB PO SCH (20:40)
[2020-08-26] MEDS: Melatonin 3 MG TAB PO SCH (20:40)
[2020-08-27] MEDS: Aspirin/APAP/Caffeine Tab (Excedrin Migraine) PO PRN ×2 (01:23→10:02)
[2020-08-27] MEDS: Aspirin 81 mg Enteric Coated Tablet PO SCH (08:24)
[2020-08-27] MEDS: Amlodipine 5 MG TAB PO SCH (08:24)
[2020-08-27] MEDS: Levothyroxine Sodium 50 MCG TAB PO SCH (08:24)
[2020-08-27] MEDS: Divalproex Sodium 250 MG (DR) TAB PO SCH (08:24)
[2020-08-27] MEDS: Gabapentin 100 MG CAP PO SCH (08:25)
[2020-08-27] MEDS: Magnesium Oxide 250 MG TAB PO SCH (08:25)
[2020-08-27] MEDS: Cephalexin 250 MG CAP PO SCH (08:25)
[2020-08-27] MEDS: Apixaban 2.5 MG TAB PO SCH (08:25)
[2020-08-27] MEDS: Polyethylene Glycol 3350 17 GM Packet PO SCH (08:26)
[2020-08-27] MEDS: Anastrozole 1 MG TAB PO SCH (08:26)
[2020-08-27] MEDS: Enoxaparin Sodium 30 MG/0.3 ML SYRINGE SC SCH (08:26)
[2020-08-27] MEDS: Amiodarone 200 MG TAB PO SCH (08:26)
[2020-08-27] MEDS ORDERED: Amiodarone 200 MG TAB PO SCH (10:07)
[2020-08-27] MEDS ORDERED: Lorazepam 1 MG TAB PO PRN (13:58)
[2020-08-27 15:22] VITALS: BP 120/60; TEMP 97.9
[2020-08-28] MEDS ORDERED: Amiodarone 200 MG TAB PO SCH (09:00)
== END 2020-08-27 16:50 | disposition home health service (06) | DRG 689 ==
LOC: ERS 21:01 → ERHOLD 08-19 01:31 → 2SW 08-19 15:08 → OBSVTOIN 08-20 18:41 → 2NO 08-26 22:37
PROVIDERS: ADMIT Student in an Organized Health Care Education/Training Program; ATTEND Internal Medicine
PROC: B51D1ZZ Fluoroscopy of Bilateral Lower Extremity Veins using Low Osmolar Contrast (ICD-10-PCS; principal; 2020-08-24)
DX: N39.0 Urinary tract infection, site not specified (principal); I21.A1 Myocardial infarction type 2; E87.1 Hypo-osmolality and hyponatremia; N17.9 Acute kidney failure, unspecified; I13.0 Hypertensive heart and chronic kidney disease with heart failure and stage 1 through stage 4 chronic kidney disease, or unspecified chronic kidney disease; I50.22 Chronic systolic (congestive) heart failure; K21.9 Gastro-esophageal reflux disease without esophagitis; E78.5 Hyperlipidemia, unspecified; Z85.3 Personal history of malignant neoplasm of breast; Z88.1 Allergy status to other antibiotic agents; Z91.048 Other nonmedicinal substance allergy status; Z79.82 Long term (current) use of aspirin; E03.9 Hypothyroidism, unspecified; Z90.12 Acquired absence of left breast and nipple; Z90.710 Acquired absence of both cervix and uterus; R79.89 Other specified abnormal findings of blood chemistry; I07.1 Rheumatic tricuspid insufficiency; N18.30 Chronic kidney disease, stage 3 unspecified; D53.9 Nutritional anemia, unspecified; M47.818 Spondylosis without myelopathy or radiculopathy, sacral and sacrococcygeal region; K59.00 Constipation, unspecified; R51.9 Headache, unspecified; F01.50 Vascular dementia, unspecified severity, without behavioral disturbance, psychotic disturbance, mood disturbance, and anxiety; F32.9 Major depressive disorder, single episode, unspecified; Z88.0 Allergy status to penicillin; I48.0 Paroxysmal atrial fibrillation; W19.XXXA Unspecified fall, initial encounter; I25.5 Ischemic cardiomyopathy
CPT/HCPCS: 36415; 36416; 70450; 72125; 72220; 80048; 80053; 81003; 81015; 82553; 82607; 82746; 83605; 83735; 84443; 84484; 85025; 85379; 87086; 87635; 93005; 93010; 93306; 93970; 96372; 96374; 96375; 96376; G0378; J0360; J0696; J1650; J2405; J3490; Q0162; U0003; U0005

== ENCOUNTER 2020-11-03 22:53 | Inpatient (IN) | payer MEDICARE ==
[2020-11-03 23:27] LABS: #Lymphocytes 0.6 thou/uL (1.20-3.40); #Monocytes 1.5 thou/uL (0.11-0.59); #Neutrophils 11.8 thou/uL (1.40-6.50); %Basophils 0.2 % (0.0-1.0); %Eosinophils 0.1 % (0.0-10.0); %Lymphocytes 4.3 % (21.0-51.0); %Monocytes 10.7 % (0.0-10.0); %Neutrophils 84.8 % (42.0-75.0); Mean Corpuscular HGB CONC 34.3 g/dL (32.0-36.0); Mean Corpuscular Hemoglobin 34.7 pg (27.0-31.0); Mean Platelet Volume 7.1 fL (7.4-10.4); Platelet Count 171 thou/uL (130-400); RBC Distribution Width 12.5 % (11.5-14.5); Red Blood Cell (RBC) Count 3.45 mill/uL (4.20-5.40); White Blood Cell (WBC) Count 13.9 thou/uL (4.8-10.8)
[2020-11-03 23:51] LABS: ALT (SGPT) 15 U/L (8-55); AST (SGOT) 19 U/L (5-34); Albumin 3.6 g/dL (3.4-4.8); Alkaline Phosphatase 75 U/L (40-110); Anion Gap 15 mmol/L (10-20); BUN (Urea Nitrogen) 17 mg/dL (9.8-20.1); Bilirubin, Total 0.4 mg/dL (0.2-1.2); Calc. Creatinine Clearance 0 mL/min (70-130); Calcium 8.4 mg/dL (7.8-10.44); Carbon Dioxide 22 mmol/L (23-31); Chloride 102 mmol/L (98-107); Globulin 3.2 g/dL (2.4-3.5); Glucose 117 mg/dL (83-110); Potassium 3.9 mmol/L (3.5-5.1); Protein, Total 6.8 g/dL (5.8-8.1); Sodium 135 mmol/L (136-145)
[2020-11-04 00:11] LABS: CKMB 0.8 ng/mL (0-6.6)
[2020-11-04 00:11] LABS: Bacteria/HPF 3+ HPF (None Seen); Bilirubin Negative (Negative); Blood, Urine 1+ (Negative); Clarity Turbid (Clear); Glucose, Urine (Dipstick) 30 mg/dL (Negative); Ketone, Urine Negative (Negative); Leukocyte 500 Leu/uL (Negative); Nitrite Negative (Negative); Protein, Urine (Dipstick) 50 mg/dL (Neg-Trace); RBC/HPF 0-3 HPF (0-3); Specific Gravity, Urine 1.016 (1.002-1.036); Squamous Epithelial 0-3 HPF (0-3); Urobilinogen Normal mg/dL (Less than 2); WBC/HPF Greater than 50 HPF (0-3)
[2020-11-04] MEDS ORDERED: Furosemide 40 MG/4 ML VIAL ONE (00:18)
[2020-11-04] MEDS ORDERED: cefTRIAXone\\ROCEPHIN 2 GM VIAL ONE (00:27)
[2020-11-04] MEDS ORDERED: Aspirin 325 MG TAB ONE (02:55)
[2020-11-04 04:19] LABS: Troponin I 0.082 ng/mL (< 0.028)
[2020-11-04 04:58] VITALS: BMI 19.4
[2020-11-04 07:09] LABS: Troponin I 0.087 ng/mL (< 0.028)
[2020-11-04 11:49] LABS: SARS-CoV-2 PCR by NAA Not Detected (NotDetected)
[2020-11-04] MEDS: Acetaminophen 325 MG TAB PO PRN ×2 (12:20→20:18)
[2020-11-04 12:55] LABS: Troponin I 0.054 ng/mL (< 0.028)
[2020-11-04] MEDS: Polyethylene Glycol OPTH DROP 15 ML BOT EA EYE SCH (16:34)
[2020-11-04] MEDS: Apixaban 2.5 MG TAB PO SCH (20:18)
[2020-11-04] MEDS: Donepezil HCl 5 MG TAB PO SCH (20:18)
[2020-11-04] MEDS: Divalproex Sodium 125 mg Sprinkle Capsule PO SCH (20:19)
[2020-11-04] MEDS: Ferrous Sulfate 325 MG TAB PO SCH (20:19)
[2020-11-04] MEDS: Atorvastatin Calcium 10 MG TAB PO SCH (20:19)
[2020-11-04] MEDS: Mirtazapine 15 MG TAB PO SCH (20:19)
[2020-11-04] MEDS: Gabapentin 100 MG CAP PO SCH (20:19)
[2020-11-04] MEDS ORDERED: HYDROcodone/Acetaminophen 5/325 mg Tablet PO SCH (23:30)
[2020-11-04] MEDS: Ketotifen Fumarate 0.025% Ophth Soln 5 ml Bottle EA EYE SCH (23:57)
[2020-11-05] MEDS: Polyethylene Glycol OPTH DROP 15 ML BOT EA EYE SCH ×5 (00:16→21:26)
[2020-11-05] MEDS: Acetaminophen 325 MG TAB PO PRN ×3 (01:33→19:51)
[2020-11-05] MEDS: cefTRIAXone\\ROCEPHIN 2 GM in Sodium Chloride 0.9% 100 ML IVPB SCH (01:33)
[2020-11-05 04:36] LABS: #Eosinphils 0.2 thou/uL (0.0-0.7); #Lymphocytes 0.8 thou/uL (1.20-3.40); #Neutrophils 9.1 thou/uL (1.40-6.50); %Basophils 0.1 % (0.0-1.0); %Eosinophils 1.6 % (0.0-10.0); %Lymphocytes 6.8 % (21.0-51.0); %Monocytes 9.3 % (0.0-10.0); %Neutrophils 82.3 % (42.0-75.0); Hemoglobin 10.6 g/dL (12.0-16.0); Mean Corpuscular HGB CONC 33.8 g/dL (32.0-36.0); Mean Corpuscular Hemoglobin 34.1 pg (27.0-31.0); Mean Platelet Volume 7.1 fL (7.4-10.4); Platelet Count 151 thou/uL (130-400); RBC Distribution Width 12.8 % (11.5-14.5); Red Blood Cell (RBC) Count 3.12 mill/uL (4.20-5.40); White Blood Cell (WBC) Count 11.1 thou/uL (4.8-10.8)
[2020-11-05 05:08] LABS: Anion Gap 12 mmol/L (10-20); BUN (Urea Nitrogen) 25 mg/dL (9.8-20.1); Calc. Creatinine Clearance 13 mL/min (70-130); Calcium 8.3 mg/dL (7.8-10.44); Carbon Dioxide 27 mmol/L (23-31); Chloride 100 mmol/L (98-107); Glucose 101 mg/dL (83-110); Potassium 3.6 mmol/L (3.5-5.1); Sodium 135 mmol/L (136-145)
[2020-11-05] MEDS: Levothyroxine Sodium 75 MCG TAB PO SCH (06:46)
[2020-11-05] MEDS ORDERED: Non-Formulary Item 1 EACH (Olopatadine Hcl [Pataday] 2.5 ML Bottle) EA EYE SCH (09:00)
[2020-11-05] MEDS: Amiodarone 200 MG TAB PO SCH (09:22)
[2020-11-05] MEDS: Montelukast Sodium 10 mg Tablet PO SCH (09:22)
[2020-11-05] MEDS: Divalproex Sodium 125 mg Sprinkle Capsule PO SCH ×2 (09:23→21:20)
[2020-11-05] MEDS: Fish Oil 1,000 MG CAP PO SCH (09:23)
[2020-11-05] MEDS: Gabapentin 100 MG CAP PO SCH ×2 (09:24→21:21)
[2020-11-05] MEDS: Cyanocobalamin (Vitamin B-12) 1,000 MCG TAB PO SCH (09:24)
[2020-11-05] MEDS: Lactinex Tablet PO SCH (09:25)
[2020-11-05] MEDS: Ascorbic Acid 500 mg Chewable Tablet PO SCH (09:25)
[2020-11-05] MEDS: Magnesium Oxide 250 MG TAB PO SCH (09:26)
[2020-11-05] MEDS: Ferrous Sulfate 325 MG TAB PO SCH ×2 (09:26→21:21)
[2020-11-05] MEDS: Anastrozole 1 MG TAB PO SCH (09:26)
[2020-11-05] MEDS: Apixaban 2.5 MG TAB PO SCH ×2 (09:26→21:20)
[2020-11-05] MEDS: Cholecalciferol 1,000 UNITS (25 MCG) TAB PO SCH (09:26)
[2020-11-05] MEDS: hydrALAZINE 10 MG TAB PO PRN (09:26)
[2020-11-05] MEDS: Fluticasone Propionate Nasal Spray 16 gm Bottle NASAL SCH (09:27)
[2020-11-05] MEDS: Ketotifen Fumarate 0.025% Ophth Soln 5 ml Bottle EA EYE SCH ×2 (09:27→21:27)
[2020-11-05] MEDS ORDERED: Amlodipine 10 MG TAB PO SCH (11:00)
[2020-11-05] MEDS: Sodium Chloride 0.9% 1,000 ML IV SCH (11:56)
[2020-11-05] MEDS: Atorvastatin Calcium 10 MG TAB PO SCH (21:20)
[2020-11-05] MEDS: Donepezil HCl 5 MG TAB PO SCH (21:21)
[2020-11-05] MEDS: Mirtazapine 15 MG TAB PO SCH (21:21)
[2020-11-06] MEDS: Sodium Chloride 0.9% 1,000 ML IV SCH ×2 (00:02→12:28)
[2020-11-06] MEDS: cefTRIAXone\\ROCEPHIN 2 GM in Sodium Chloride 0.9% 100 ML IVPB SCH (01:11)
[2020-11-06] MEDS: Acetaminophen 325 MG TAB PO PRN ×3 (01:11→20:10)
[2020-11-06 04:38] LABS: #Eosinphils 0.3 thou/uL (0.0-0.7); #Lymphocytes 0.8 thou/uL (1.20-3.40); %Basophils 0.4 % (0.0-1.0); %Eosinophils 3.9 % (0.0-10.0); %Lymphocytes 9.5 % (21.0-51.0); %Neutrophils 74.3 % (42.0-75.0); Hemoglobin 10.1 g/dL (12.0-16.0); Mean Corpuscular Hemoglobin 34.3 pg (27.0-31.0); Mean Platelet Volume 7.2 fL (7.4-10.4); Platelet Count 154 thou/uL (130-400); RBC Distribution Width 12.7 % (11.5-14.5); Red Blood Cell (RBC) Count 2.94 mill/uL (4.20-5.40)
[2020-11-06 05:03] LABS: Anion Gap 12 mmol/L (10-20); BUN (Urea Nitrogen) 25 mg/dL (9.8-20.1); Calc. Creatinine Clearance 14 mL/min (70-130); Calcium 8.2 mg/dL (7.8-10.44); Carbon Dioxide 23 mmol/L (23-31); Chloride 101 mmol/L (98-107); Glucose 103 mg/dL (83-110); Potassium 4.2 mmol/L (3.5-5.1); Sodium 132 mmol/L (136-145)
[2020-11-06] MEDS: Levothyroxine Sodium 75 MCG TAB PO SCH (05:43)
[2020-11-06] MEDS: Cholecalciferol 1,000 UNITS (25 MCG) TAB PO SCH (08:43)
[2020-11-06] MEDS: Montelukast Sodium 10 mg Tablet PO SCH (08:43)
[2020-11-06] MEDS: Magnesium Oxide 250 MG TAB PO SCH (08:43)
[2020-11-06] MEDS: Gabapentin 100 MG CAP PO SCH ×2 (08:44→22:27)
[2020-11-06] MEDS: Apixaban 2.5 MG TAB PO SCH ×2 (08:44→22:26)
[2020-11-06] MEDS: Amlodipine 10 MG TAB PO SCH (08:44)
[2020-11-06] MEDS: Lactinex Tablet PO SCH (08:44)
[2020-11-06] MEDS: Ascorbic Acid 500 mg Chewable Tablet PO SCH (08:44)
[2020-11-06] MEDS: Fish Oil 1,000 MG CAP PO SCH (08:45)
[2020-11-06] MEDS: Amiodarone 200 MG TAB PO SCH (08:45)
[2020-11-06] MEDS: Anastrozole 1 MG TAB PO SCH (08:45)
[2020-11-06] MEDS: Cyanocobalamin (Vitamin B-12) 1,000 MCG TAB PO SCH (08:46)
[2020-11-06] MEDS: Divalproex Sodium 125 mg Sprinkle Capsule PO SCH ×2 (08:46→22:26)
[2020-11-06] MEDS: Ferrous Sulfate 325 MG TAB PO SCH ×2 (08:46→22:27)
[2020-11-06] MEDS: Fluticasone Propionate Nasal Spray 16 gm Bottle NASAL SCH (08:48)
[2020-11-06] MEDS: Polyethylene Glycol OPTH DROP 15 ML BOT EA EYE SCH ×4 (08:48→22:28)
[2020-11-06] MEDS: Ketotifen Fumarate 0.025% Ophth Soln 5 ml Bottle EA EYE SCH ×2 (08:48→22:27)
[2020-11-06] MEDS ORDERED: Cosyntropin 250 MCG VIAL SLOW IVP SCH (16:00)
[2020-11-06] MEDS: Atorvastatin Calcium 10 MG TAB PO SCH (22:26)
[2020-11-06] MEDS: Mirtazapine 15 MG TAB PO SCH (22:27)
[2020-11-06] MEDS: Donepezil HCl 5 MG TAB PO SCH (22:27)
[2020-11-07] MEDS: cefTRIAXone\\ROCEPHIN 2 GM in Sodium Chloride 0.9% 100 ML IVPB SCH (00:18)
[2020-11-07 04:23] LABS: #Eosinphils 0.3 thou/uL (0.0-0.7); #Lymphocytes 0.9 thou/uL (1.20-3.40); #Monocytes 0.8 thou/uL (0.11-0.59); #Neutrophils 4.4 thou/uL (1.40-6.50); %Basophils 0.5 % (0.0-1.0); %Eosinophils 5.2 % (0.0-10.0); %Lymphocytes 13.1 % (21.0-51.0); %Monocytes 12.7 % (0.0-10.0); %Neutrophils 68.5 % (42.0-75.0); Hemoglobin 10.3 g/dL (12.0-16.0); Mean Corpuscular HGB CONC 33.7 g/dL (32.0-36.0); Mean Corpuscular Hemoglobin 34.4 pg (27.0-31.0); Mean Platelet Volume 7.2 fL (7.4-10.4); Platelet Count 170 thou/uL (130-400); RBC Distribution Width 12.4 % (11.5-14.5); Red Blood Cell (RBC) Count 2.98 mill/uL (4.20-5.40); White Blood Cell (WBC) Count 6.5 thou/uL (4.8-10.8)
[2020-11-07] MEDS: Sodium Chloride 0.9% 1,000 ML IV SCH (04:57)
[2020-11-07 05:22] LABS: Anion Gap 14 mmol/L (10-20); BUN (Urea Nitrogen) 16 mg/dL (9.8-20.1); Calc. Creatinine Clearance 17 mL/min (70-130); Calcium 8.1 mg/dL (7.8-10.44); Carbon Dioxide 22 mmol/L (23-31); Chloride 106 mmol/L (98-107); Glucose 100 mg/dL (83-110); Potassium 3.5 mmol/L (3.5-5.1); Sodium 138 mmol/L (136-145)
[2020-11-07 05:40] LABS: Free T4 (Free Thyroxine) 1.52 ng/dL (0.70-1.48); Thyroid Stimulating Hormone 1.8643 uIU/mL (0.35-4.94)
[2020-11-07] MEDS: Levothyroxine Sodium 75 MCG TAB PO SCH (06:09)
[2020-11-07] MEDS: Acetaminophen 325 MG TAB PO PRN (06:09)
[2020-11-07] MEDS: hydrALAZINE 10 MG TAB PO PRN (06:16)
[2020-11-07] MEDS: Magnesium Oxide 250 MG TAB PO SCH (09:47)
[2020-11-07] MEDS: Cyanocobalamin (Vitamin B-12) 1,000 MCG TAB PO SCH (09:47)
[2020-11-07] MEDS: Lactinex Tablet PO SCH (09:47)
[2020-11-07] MEDS: Amiodarone 200 MG TAB PO SCH (09:48)
[2020-11-07] MEDS: Montelukast Sodium 10 mg Tablet PO SCH (09:48)
[2020-11-07] MEDS: Gabapentin 100 MG CAP PO SCH (09:48)
[2020-11-07] MEDS: Ferrous Sulfate 325 MG TAB PO SCH (09:48)
[2020-11-07] MEDS: Apixaban 2.5 MG TAB PO SCH (09:48)
[2020-11-07] MEDS: Divalproex Sodium 125 mg Sprinkle Capsule PO SCH (09:48)
[2020-11-07] MEDS: Ascorbic Acid 500 mg Chewable Tablet PO SCH (09:49)
[2020-11-07] MEDS: Anastrozole 1 MG TAB PO SCH (09:49)
[2020-11-07] MEDS: Cholecalciferol 1,000 UNITS (25 MCG) TAB PO SCH (09:49)
[2020-11-07] MEDS: Amlodipine 10 MG TAB PO SCH (09:49)
[2020-11-07] MEDS: Fish Oil 1,000 MG CAP PO SCH (09:49)
[2020-11-07] MEDS: Ketotifen Fumarate 0.025% Ophth Soln 5 ml Bottle EA EYE SCH (09:50)
[2020-11-07] MEDS: Fluticasone Propionate Nasal Spray 16 gm Bottle NASAL SCH (09:50)
[2020-11-07] MEDS: Polyethylene Glycol OPTH DROP 15 ML BOT EA EYE SCH ×3 (09:51→16:52)
[2020-11-07] MEDS ORDERED: Calcium Carbonate 600 MG + Vit D TAB PO SCH (11:30)
[2020-11-07 16:21] VITALS: BP 161/72; TEMP 98.6
[2020-11-08] MEDS ORDERED: Calcium Carbonate 600 MG + Vit D TAB PO SCH (09:00)
== END 2020-11-07 17:25 | DRG 690 ==
LOC: ERS 22:53 → 2NO 11-04 03:03
PROVIDERS: ADMIT Internal Medicine; ATTEND Internal Medicine
DX: N39.0 Urinary tract infection, site not specified (principal); N17.9 Acute kidney failure, unspecified; N18.4 Chronic kidney disease, stage 4 (severe); E86.0 Dehydration; I12.9 Hypertensive chronic kidney disease with stage 1 through stage 4 chronic kidney disease, or unspecified chronic kidney disease; Z66 Do not resuscitate; Z20.822 Contact with and (suspected) exposure to COVID-19; E03.9 Hypothyroidism, unspecified; E78.5 Hyperlipidemia, unspecified; K21.9 Gastro-esophageal reflux disease without esophagitis; I48.91 Unspecified atrial fibrillation; F41.9 Anxiety disorder, unspecified; F03.90 Unspecified dementia, unspecified severity, without behavioral disturbance, psychotic disturbance, mood disturbance, and anxiety; R77.8 Other specified abnormalities of plasma proteins; B96.20 Unspecified Escherichia coli [E. coli] as the cause of diseases classified elsewhere; I48.0 Paroxysmal atrial fibrillation; S00.83XA Contusion of other part of head, initial encounter; W18.30XA Fall on same level, unspecified, initial encounter; E86.9 Volume depletion, unspecified; Z85.3 Personal history of malignant neoplasm of breast; Z88.4 Allergy status to anesthetic agent; Z92.3 Personal history of irradiation; Z92.21 Personal history of antineoplastic chemotherapy; Z90.12 Acquired absence of left breast and nipple; Z79.890 Hormone replacement therapy; Z88.0 Allergy status to penicillin; Z91.09 Other allergy status, other than to drugs and biological substances; Z79.899 Other long term (current) drug therapy; Z79.82 Long term (current) use of aspirin; Z79.01 Long term (current) use of anticoagulants; Z75.1 Person awaiting admission to adequate facility elsewhere; Z90.710 Acquired absence of both cervix and uterus
CPT/HCPCS: 36415; 36416; 51701; 70450; 70486; 71045; 72125; 76770; 80048; 80053; 80400; 81003; 81015; 82553; 83880; 84439; 84443; 84484; 85025; 87077; 87086; 87186; 87324; 87449; 93005; 96365; 96375; J0696; J0834; J1940; J3490; U0003; U0005

== ENCOUNTER 2021-01-14 11:28 | Inpatient (IN) | payer MEDICARE ==
[2021-01-14 12:48] LABS: #Basophils 0.1 thou/uL (0.0-0.2); #Eosinphils 0.2 thou/uL (0.0-0.7); #Monocytes 0.8 thou/uL (0.11-0.59); #Neutrophils 3.7 thou/uL (1.40-6.50); %Basophils 1.1 % (0.0-1.0); %Lymphocytes 17.5 % (21.0-51.0); %Neutrophils 64.4 % (42.0-75.0); Hemoglobin 10.4 g/dL (12.0-16.0); Mean Corpuscular HGB CONC 33.1 g/dL (32.0-36.0); Mean Corpuscular Hemoglobin 34.1 pg (27.0-31.0); Mean Platelet Volume 7.1 fL (7.4-10.4); Platelet Count 203 thou/uL (130-400); RBC Distribution Width 13.7 % (11.5-14.5); Red Blood Cell (RBC) Count 3.04 mill/uL (4.20-5.40); White Blood Cell (WBC) Count 5.8 thou/uL (4.8-10.8)
[2021-01-14 12:54] LABS: ALT (SGPT) 25 U/L (8-55); AST (SGOT) 32 U/L (5-34); Albumin 3.5 g/dL (3.4-4.8); Alkaline Phosphatase 123 U/L (40-110); Anion Gap 13 mmol/L (10-20); BUN (Urea Nitrogen) 22 mg/dL (9.8-20.1); Bilirubin, Total 0.4 mg/dL (0.2-1.2); Calc. Creatinine Clearance 0 mL/min (70-130); Calcium 8.5 mg/dL (7.8-10.44); Carbon Dioxide 26 mmol/L (23-31); Chloride 99 mmol/L (98-107); Globulin 3.4 g/dL (2.4-3.5); Glucose 108 mg/dL (83-110); Protein, Total 6.9 g/dL (5.8-8.1); Sodium 134 mmol/L (136-145)
[2021-01-14 14:56] LABS: Bilirubin Negative (Negative); Blood, Urine Negative (Negative); Clarity Clear (Clear); Glucose, Urine (Dipstick) Normal (Negative); Ketone, Urine Negative (Negative); Leukocyte Negative Leu/uL (Negative); Nitrite Negative (Negative); Protein, Urine (Dipstick) Negative (Neg-Trace); Specific Gravity, Urine 1.015 (1.002-1.036); Urobilinogen Normal mg/dL (Less than 2); pH, Urine 6.5 (5.0-9.0)
[2021-01-14 15:32] LABS: SARS-CoV-2 NAA Rapid Test Not Detected (NotDetected)
[2021-01-14] MEDS ORDERED: Furosemide 40 MG/4 ML VIAL SLOW IVP SCH (16:15)
[2021-01-14 16:26] LABS: Troponin I Less than 0.010 ng/mL (< 0.028)
[2021-01-14 17:51] LABS: Creatinine, Urine 77.22 mg/dL (47-110)
[2021-01-14 19:06] LABS: Troponin I Less than 0.010 ng/mL (< 0.028)
[2021-01-14] MEDS ORDERED: Furosemide 40 MG/4 ML VIAL ONE (19:37)
[2021-01-14] MEDS: Carvedilol 6.25 MG TAB PO SCH (20:27)
[2021-01-14] MEDS: Donepezil HCl 5 MG TAB PO SCH (22:45)
[2021-01-14] MEDS: Acetaminophen 500 MG TAB PO PRN (22:45)
[2021-01-14] MEDS: Atorvastatin Calcium 10 MG TAB PO SCH (22:45)
[2021-01-14] MEDS: Mirtazapine 15 MG TAB PO SCH (22:46)
[2021-01-14] MEDS: Divalproex Sodium 125 mg Sprinkle Capsule PO SCH (22:46)
[2021-01-14] MEDS: Meclizine HCl 12.5 MG TAB PO SCH (22:46)
[2021-01-14] MEDS: Heparin 5,000 UNITS/ML VIAL SC SCH (22:47)
[2021-01-14] MEDS: Famotidine/PF 20 mg/2ml Vial SLOW IVP SCH (22:47)
[2021-01-14] MEDS: Ketotifen Fumarate 0.025% Ophth Soln 5 ml Bottle EA EYE SCH (22:52)
[2021-01-15] MEDS ORDERED: Acetaminophen 500 MG TAB PO SCH (03:30)
[2021-01-15 04:49] LABS: #Eosinphils 0.2 thou/uL (0.0-0.7); #Lymphocytes 1.2 thou/uL (1.20-3.40); #Monocytes 0.8 thou/uL (0.11-0.59); #Neutrophils 3.6 thou/uL (1.40-6.50); %Basophils 0.7 % (0.0-1.0); %Eosinophils 3.7 % (0.0-10.0); %Lymphocytes 19.7 % (21.0-51.0); %Monocytes 14.2 % (0.0-10.0); %Neutrophils 61.7 % (42.0-75.0); Hemoglobin 9.2 g/dL (12.0-16.0); Mean Corpuscular HGB CONC 34.4 g/dL (32.0-36.0); Mean Corpuscular Hemoglobin 35.9 pg (27.0-31.0); Mean Platelet Volume 6.9 fL (7.4-10.4); Platelet Count 192 thou/uL (130-400); RBC Distribution Width 13.8 % (11.5-14.5); Red Blood Cell (RBC) Count 2.57 mill/uL (4.20-5.40); White Blood Cell (WBC) Count 5.9 thou/uL (4.8-10.8)
[2021-01-15 05:22] LABS: Anion Gap 11 mmol/L (10-20); BUN (Urea Nitrogen) 24 mg/dL (9.8-20.1); Calc. Creatinine Clearance 17 mL/min (70-130); Calcium 8.3 mg/dL (7.8-10.44); Carbon Dioxide 29 mmol/L (23-31); Chloride 99 mmol/L (98-107); Glucose 88 mg/dL (83-110); Potassium 3.6 mmol/L (3.5-5.1); Sodium 135 mmol/L (136-145)
[2021-01-15] MEDS: Levothyroxine Sodium 75 MCG TAB PO SCH (05:59)
[2021-01-15] MEDS: Furosemide 40 MG/4 ML VIAL SLOW IVP SCH (08:47)
[2021-01-15] MEDS: Amiodarone 200 MG TAB PO SCH (08:47)
[2021-01-15] MEDS: Anastrozole 1 MG TAB PO SCH (08:47)
[2021-01-15] MEDS: Carvedilol 6.25 MG TAB PO SCH ×2 (08:47→16:20)
[2021-01-15] MEDS: Montelukast Sodium 10 mg Tablet PO SCH (08:47)
[2021-01-15] MEDS: Heparin 5,000 UNITS/ML VIAL SC SCH ×3 (08:48→20:55)
[2021-01-15] MEDS: Meclizine HCl 12.5 MG TAB PO SCH ×2 (08:48→20:54)
[2021-01-15] MEDS: Divalproex Sodium 125 mg Sprinkle Capsule PO SCH ×2 (08:48→20:54)
[2021-01-15] MEDS: Ascorbic Acid 500 mg Chewable Tablet PO SCH (08:48)
[2021-01-15] MEDS: Cholecalciferol 1,000 UNITS (25 MCG) TAB PO SCH (08:48)
[2021-01-15] MEDS: Ketotifen Fumarate 0.025% Ophth Soln 5 ml Bottle EA EYE SCH ×2 (08:48→20:55)
[2021-01-15] MEDS: Fluticasone Propionate Nasal Spray 16 gm Bottle NASAL SCH (12:19)
[2021-01-15] MEDS: Acetaminophen 500 MG TAB PO PRN (16:19)
[2021-01-15] MEDS ORDERED: Metoclopramide HCl 10 MG/2 ML VIAL IVP PRN (19:40)
[2021-01-15] MEDS: Promethazine 25 MG TAB PO PRN (20:53)
[2021-01-15] MEDS: Mirtazapine 15 MG TAB PO SCH (20:54)
[2021-01-15] MEDS: Donepezil HCl 5 MG TAB PO SCH (20:54)
[2021-01-15] MEDS: Atorvastatin Calcium 10 MG TAB PO SCH (20:54)
[2021-01-15] MEDS: Famotidine/PF 20 mg/2ml Vial SLOW IVP SCH (22:16)
[2021-01-16] MEDS: Acetaminophen 500 MG TAB PO PRN ×3 (00:15→21:52)
[2021-01-16] MEDS: Levothyroxine Sodium 75 MCG TAB PO SCH (06:06)
[2021-01-16 09:07] LABS: #Eosinphils 0.3 thou/uL (0.0-0.7); #Monocytes 0.7 thou/uL (0.11-0.59); #Neutrophils 3.4 thou/uL (1.40-6.50); %Basophils 0.5 % (0.0-1.0); %Eosinophils 4.8 % (0.0-10.0); %Lymphocytes 18.7 % (21.0-51.0); %Monocytes 13.3 % (0.0-10.0); %Neutrophils 62.7 % (42.0-75.0); Hemoglobin 10.7 g/dL (12.0-16.0); Mean Corpuscular HGB CONC 33.7 g/dL (32.0-36.0); Mean Corpuscular Hemoglobin 34.9 pg (27.0-31.0); Platelet Count 211 thou/uL (130-400); Red Blood Cell (RBC) Count 3.08 mill/uL (4.20-5.40); White Blood Cell (WBC) Count 5.4 thou/uL (4.8-10.8)
[2021-01-16] MEDS: Furosemide 40 MG/4 ML VIAL SLOW IVP SCH (09:26)
[2021-01-16] MEDS: Montelukast Sodium 10 mg Tablet PO SCH (09:26)
[2021-01-16] MEDS: Heparin 5,000 UNITS/ML VIAL SC SCH (09:26)
[2021-01-16] MEDS: Anastrozole 1 MG TAB PO SCH (09:27)
[2021-01-16] MEDS: Divalproex Sodium 125 mg Sprinkle Capsule PO SCH ×2 (09:27→20:43)
[2021-01-16] MEDS: Ascorbic Acid 500 mg Chewable Tablet PO SCH (09:27)
[2021-01-16] MEDS: Amiodarone 200 MG TAB PO SCH (09:27)
[2021-01-16] MEDS: Carvedilol 6.25 MG TAB PO SCH ×2 (09:27→16:26)
[2021-01-16] MEDS: Meclizine HCl 12.5 MG TAB PO SCH ×2 (09:27→20:44)
[2021-01-16] MEDS: Cholecalciferol 1,000 UNITS (25 MCG) TAB PO SCH (09:27)
[2021-01-16] MEDS: Ketotifen Fumarate 0.025% Ophth Soln 5 ml Bottle EA EYE SCH ×2 (09:28→21:53)
[2021-01-16 09:30] LABS: Anion Gap 14 mmol/L (10-20); BUN (Urea Nitrogen) 21 mg/dL (9.8-20.1); Calc. Creatinine Clearance 17 mL/min (70-130); Calcium 8.9 mg/dL (7.8-10.44); Carbon Dioxide 26 mmol/L (23-31); Chloride 100 mmol/L (98-107); Glucose 90 mg/dL (83-110); Potassium 3.4 mmol/L (3.5-5.1); Sodium 137 mmol/L (136-145)
[2021-01-16] MEDS: Fluticasone Propionate Nasal Spray 16 gm Bottle NASAL SCH (09:39)
[2021-01-16] MEDS ORDERED: Potassium Chloride 20 MEQ TAB PO SCH (12:30)
[2021-01-16] MEDS: Promethazine 25 MG TAB PO PRN ×2 (16:23→21:49)
[2021-01-16] MEDS: Donepezil HCl 5 MG TAB PO SCH (20:43)
[2021-01-16] MEDS: Famotidine/PF 20 mg/2ml Vial SLOW IVP SCH (20:43)
[2021-01-16] MEDS: Mirtazapine 15 MG TAB PO SCH (20:44)
[2021-01-16] MEDS: Atorvastatin Calcium 10 MG TAB PO SCH (20:44)
[2021-01-17] MEDS: Bismuth Subs 17.5 mg/mL Susp PO PRN ×2 (00:22→22:55)
[2021-01-17 05:08] LABS: Anion Gap 16 mmol/L (10-20); BUN (Urea Nitrogen) 21 mg/dL (9.8-20.1); Calc. Creatinine Clearance 18 mL/min (70-130); Calcium 8.9 mg/dL (7.8-10.44); Carbon Dioxide 22 mmol/L (23-31); Chloride 102 mmol/L (98-107); Glucose 93 mg/dL (83-110); Potassium 4.1 mmol/L (3.5-5.1); Sodium 136 mmol/L (136-145)
[2021-01-17] MEDS: Acetaminophen 500 MG TAB PO PRN ×3 (05:56→20:26)
[2021-01-17] MEDS: Levothyroxine Sodium 75 MCG TAB PO SCH (05:56)
[2021-01-17] MEDS: Divalproex Sodium 125 mg Sprinkle Capsule PO SCH ×2 (09:52→20:26)
[2021-01-17] MEDS: Ascorbic Acid 500 mg Chewable Tablet PO SCH (09:52)
[2021-01-17] MEDS: Carvedilol 6.25 MG TAB PO SCH ×2 (09:52→16:08)
[2021-01-17] MEDS: Amiodarone 200 MG TAB PO SCH (09:53)
[2021-01-17] MEDS: Enoxaparin Sodium 30 MG/0.3 ML SYRINGE SC SCH (09:53)
[2021-01-17] MEDS: Cholecalciferol 1,000 UNITS (25 MCG) TAB PO SCH (09:53)
[2021-01-17] MEDS: Montelukast Sodium 10 mg Tablet PO SCH (09:53)
[2021-01-17] MEDS: Anastrozole 1 MG TAB PO SCH (09:53)
[2021-01-17] MEDS: Meclizine HCl 12.5 MG TAB PO SCH ×2 (09:53→20:26)
[2021-01-17] MEDS: Ketotifen Fumarate 0.025% Ophth Soln 5 ml Bottle EA EYE SCH ×2 (09:54→20:27)
[2021-01-17] MEDS: Torsemide 20 MG TAB PO SCH (09:57)
[2021-01-17] MEDS: Fluticasone Propionate Nasal Spray 16 gm Bottle NASAL SCH (11:47)
[2021-01-17] MEDS: Promethazine 25 MG TAB PO PRN ×2 (16:08→21:53)
[2021-01-17] MEDS: Mirtazapine 15 MG TAB PO SCH (20:26)
[2021-01-17] MEDS: Famotidine/PF 20 mg/2ml Vial SLOW IVP SCH (20:26)
[2021-01-17] MEDS: Atorvastatin Calcium 10 MG TAB PO SCH (20:26)
[2021-01-17] MEDS: Donepezil HCl 5 MG TAB PO SCH (20:26)
[2021-01-17] MEDS: Lorazepam 1 MG TAB PO PRN (23:53)
[2021-01-18] MEDS: Levothyroxine Sodium 75 MCG TAB PO SCH (06:20)
[2021-01-18] MEDS: Enoxaparin Sodium 30 MG/0.3 ML SYRINGE SC SCH (09:43)
[2021-01-18] MEDS: Divalproex Sodium 125 mg Sprinkle Capsule PO SCH ×2 (09:46→20:42)
[2021-01-18] MEDS: Ascorbic Acid 500 mg Chewable Tablet PO SCH (09:46)
[2021-01-18] MEDS: Anastrozole 1 MG TAB PO SCH (09:47)
[2021-01-18] MEDS: Cholecalciferol 1,000 UNITS (25 MCG) TAB PO SCH (09:47)
[2021-01-18] MEDS: Torsemide 20 MG TAB PO SCH (09:47)
[2021-01-18] MEDS: Montelukast Sodium 10 mg Tablet PO SCH (09:47)
[2021-01-18] MEDS: Carvedilol 6.25 MG TAB PO SCH (09:47)
[2021-01-18] MEDS: Amiodarone 200 MG TAB PO SCH (09:47)
[2021-01-18] MEDS: Meclizine HCl 12.5 MG TAB PO SCH ×2 (09:47→20:42)
[2021-01-18] MEDS: Ketotifen Fumarate 0.025% Ophth Soln 5 ml Bottle EA EYE SCH ×2 (09:48→20:43)
[2021-01-18] MEDS: Fluticasone Propionate Nasal Spray 16 gm Bottle NASAL SCH (09:52)
[2021-01-18] MEDS: Bismuth Subs 17.5 mg/mL Susp PO PRN ×2 (11:48→20:41)
[2021-01-18] MEDS ORDERED: Furosemide 40 MG/4 ML VIAL SLOW IVP SCH ×2 (13:45→20:00)
[2021-01-18] MEDS: Acetaminophen 500 MG TAB PO PRN ×2 (14:02→20:42)
[2021-01-18] MEDS: Furosemide 40 MG/4 ML VIAL SLOW IVP SCH (15:23)
[2021-01-18] MEDS ORDERED: Potassium Bicarbonate/Cit Ac 20 MEQ TAB PO SCH (18:00)
[2021-01-18] MEDS ORDERED: Potassium Chloride 20 MEQ TAB PO SCH (18:00)
[2021-01-18] MEDS: Famotidine/PF 20 mg/2ml Vial SLOW IVP SCH (20:42)
[2021-01-18] MEDS: Atorvastatin Calcium 10 MG TAB PO SCH (20:42)
[2021-01-18] MEDS: Donepezil HCl 5 MG TAB PO SCH (20:42)
[2021-01-18] MEDS: Mirtazapine 15 MG TAB PO SCH (20:42)
[2021-01-18] MEDS: Lorazepam 1 MG TAB PO PRN (23:10)
[2021-01-19 05:03] LABS: Anion Gap 14 mmol/L (10-20); BUN (Urea Nitrogen) 22 mg/dL (9.8-20.1); Calc. Creatinine Clearance 135 mL/min (70-130); Calcium 8.7 mg/dL (7.8-10.44); Carbon Dioxide 28 mmol/L (23-31); Chloride 98 mmol/L (98-107); Glucose 89 mg/dL (83-110); Potassium 3.6 mmol/L (3.5-5.1); Sodium 136 mmol/L (136-145)
[2021-01-19] MEDS: Furosemide 40 MG/4 ML VIAL SLOW IVP SCH (06:00)
[2021-01-19] MEDS: Levothyroxine Sodium 75 MCG TAB PO SCH (06:00)
[2021-01-19] MEDS: Meclizine HCl 12.5 MG TAB PO SCH ×2 (08:29→21:00)
[2021-01-19] MEDS: Amiodarone 200 MG TAB PO SCH (08:29)
[2021-01-19] MEDS: Cholecalciferol 1,000 UNITS (25 MCG) TAB PO SCH (08:29)
[2021-01-19] MEDS: Divalproex Sodium 125 mg Sprinkle Capsule PO SCH ×2 (08:29→21:00)
[2021-01-19] MEDS: Anastrozole 1 MG TAB PO SCH (08:29)
[2021-01-19] MEDS: Ascorbic Acid 500 mg Chewable Tablet PO SCH (08:29)
[2021-01-19] MEDS: Ketotifen Fumarate 0.025% Ophth Soln 5 ml Bottle EA EYE SCH ×2 (08:29→21:00)
[2021-01-19] MEDS: Montelukast Sodium 10 mg Tablet PO SCH (08:29)
[2021-01-19] MEDS: Fluticasone Propionate Nasal Spray 16 gm Bottle NASAL SCH (08:30)
[2021-01-19] MEDS: traMADol HCl 50 MG TAB PO PRN ×2 (11:11→18:02)
[2021-01-19] MEDS: Promethazine 25 MG TAB PO PRN ×2 (11:11→18:02)
[2021-01-19] MEDS: Bismuth Subs 17.5 mg/mL Susp PO PRN ×2 (12:03→18:04)
[2021-01-19] MEDS: Acetaminophen 500 MG TAB PO PRN ×2 (15:17→20:59)
[2021-01-19] MEDS: Lorazepam 1 MG TAB PO PRN (18:02)
[2021-01-19] MEDS: Atorvastatin Calcium 10 MG TAB PO SCH (20:59)
[2021-01-19] MEDS: Famotidine/PF 20 mg/2ml Vial SLOW IVP SCH (20:59)
[2021-01-19] MEDS: Donepezil HCl 5 MG TAB PO SCH (20:59)
[2021-01-19] MEDS: Mirtazapine 15 MG TAB PO SCH (21:00)
[2021-01-20] MEDS: Levothyroxine Sodium 75 MCG TAB PO SCH (06:08)
[2021-01-20 07:29] LABS: INR-International Normal Ratio 1.2; PTT 33.8 sec (22.9-36.1)
[2021-01-20 07:31] LABS: Albumin 3.3 g/dL (3.4-4.8); Anion Gap 15 mmol/L (10-20); BUN (Urea Nitrogen) 20 mg/dL (9.8-20.1); BUN/Creatinine Ratio 9.62; Calc. Creatinine Clearance 15 mL/min (70-130); Calcium 8.4 mg/dL (7.8-10.44); Carbon Dioxide 25 mmol/L (23-31); Chloride 99 mmol/L (98-107); Glucose 88 mg/dL (83-110); Phosphorus 4.1 mg/dL (2.3-4.7); Potassium 3.5 mmol/L (3.5-5.1); Sodium 135 mmol/L (136-145)
[2021-01-20 07:32] LABS: Hemoglobin 10.8 g/dL (12.0-16.0); Mean Corpuscular HGB CONC 33.1 g/dL (32.0-36.0); Mean Corpuscular Hemoglobin 34.3 pg (27.0-31.0); Mean Platelet Volume 6.5 fL (7.4-10.4); Platelet Count 204 thou/uL (130-400); RBC Distribution Width 13.8 % (11.5-14.5); Red Blood Cell (RBC) Count 3.16 mill/uL (4.20-5.40); White Blood Cell (WBC) Count 6.6 thou/uL (4.8-10.8)
[2021-01-20] MEDS: Cholecalciferol 1,000 UNITS (25 MCG) TAB PO SCH (08:37)
[2021-01-20] MEDS: Divalproex Sodium 125 mg Sprinkle Capsule PO SCH ×2 (08:37→20:48)
[2021-01-20] MEDS: Montelukast Sodium 10 mg Tablet PO SCH (08:37)
[2021-01-20] MEDS: Ascorbic Acid 500 mg Chewable Tablet PO SCH (08:37)
[2021-01-20] MEDS: Amiodarone 200 MG TAB PO SCH (08:37)
[2021-01-20] MEDS: Anastrozole 1 MG TAB PO SCH (08:37)
[2021-01-20] MEDS: Meclizine HCl 12.5 MG TAB PO SCH ×2 (08:37→20:49)
[2021-01-20] MEDS: Fluticasone Propionate Nasal Spray 16 gm Bottle NASAL SCH (08:40)
[2021-01-20] MEDS: Ketotifen Fumarate 0.025% Ophth Soln 5 ml Bottle EA EYE SCH ×2 (08:40→20:49)
[2021-01-20] MEDS ORDERED: Furosemide 40 MG/4 ML VIAL SLOW IVP SCH ×2 (09:00→18:00)
[2021-01-20] MEDS ORDERED: Potassium Chloride 20 MEQ TAB PO SCH (10:00)
[2021-01-20 10:28] VITALS: BMI 21.5
[2021-01-20 10:30] LABS: Magnesium 2.2 mg/dL (1.6-2.6)
[2021-01-20] MEDS: Promethazine 25 MG TAB PO PRN (18:02)
[2021-01-20] MEDS: Atorvastatin Calcium 10 MG TAB PO SCH (20:47)
[2021-01-20] MEDS: Acetaminophen 500 MG TAB PO PRN (20:47)
[2021-01-20] MEDS: Famotidine/PF 20 mg/2ml Vial SLOW IVP SCH (20:48)
[2021-01-20] MEDS: Mirtazapine 15 MG TAB PO SCH (20:49)
[2021-01-20] MEDS: Donepezil HCl 5 MG TAB PO SCH (21:01)
[2021-01-21] MEDS: traMADol HCl 50 MG TAB PO PRN (01:20)
[2021-01-21 04:52] LABS: Albumin 3.6 g/dL (3.4-4.8); Anion Gap 15 mmol/L (10-20); BUN (Urea Nitrogen) 22 mg/dL (9.8-20.1); BUN/Creatinine Ratio 10.43; Calc. Creatinine Clearance 15 mL/min (70-130); Calcium 8.8 mg/dL (7.8-10.44); Carbon Dioxide 25 mmol/L (23-31); Chloride 100 mmol/L (98-107); Glucose 87 mg/dL (83-110); Phosphorus 3.8 mg/dL (2.3-4.7); Potassium 3.8 mmol/L (3.5-5.1); Sodium 136 mmol/L (136-145)
[2021-01-21] MEDS: Levothyroxine Sodium 75 MCG TAB PO SCH (04:59)
[2021-01-21] MEDS ORDERED: Furosemide 40 MG/4 ML VIAL SLOW IVP SCH (08:00)
[2021-01-21] MEDS: Divalproex Sodium 125 mg Sprinkle Capsule PO SCH (08:22)
[2021-01-21] MEDS: Acetaminophen 500 MG TAB PO PRN ×2 (08:22→15:36)
[2021-01-21] MEDS: Anastrozole 1 MG TAB PO SCH (08:22)
[2021-01-21] MEDS: Ascorbic Acid 500 mg Chewable Tablet PO SCH (08:22)
[2021-01-21] MEDS: Montelukast Sodium 10 mg Tablet PO SCH (08:23)
[2021-01-21] MEDS: Ketotifen Fumarate 0.025% Ophth Soln 5 ml Bottle EA EYE SCH (08:23)
[2021-01-21] MEDS: Amiodarone 200 MG TAB PO SCH (08:23)
[2021-01-21] MEDS: Fluticasone Propionate Nasal Spray 16 gm Bottle NASAL SCH (08:23)
[2021-01-21] MEDS: Cholecalciferol 1,000 UNITS (25 MCG) TAB PO SCH (08:23)
[2021-01-21] MEDS: Meclizine HCl 12.5 MG TAB PO SCH (08:23)
[2021-01-21 11:19] VITALS: TEMP 98.6
[2021-01-21] MEDS ORDERED: Potassium Chloride 20 MEQ TAB PO SCH (12:30)
[2021-01-21] MEDS ORDERED: Potassium Bicarbonate/Cit Ac 20 MEQ TAB PO SCH (13:15)
[2021-01-21 15:01] VITALS: BP 141/66
[2021-01-21] MEDS ORDERED: Atorvastatin Calcium 10 MG TAB PO SCH (21:00)
[2021-01-22] MEDS ORDERED: Potassium Chloride 20 MEQ TAB PO SCH (08:00)
[2021-01-22] MEDS ORDERED: Carvedilol 6.25 MG TAB PO SCH (08:00)
[2021-01-22] MEDS ORDERED: Potassium Bicarbonate/Cit Ac 20 MEQ TAB PO SCH (08:00)
[2021-01-22] MEDS ORDERED: Torsemide 20 MG TAB PO SCH (09:00)
== END 2021-01-21 15:57 | DRG 291 ==
LOC: ERS 11:28 → ERHOLD 15:20 → 2NO 22:19
PROVIDERS: ADMIT Emergency Medicine; ATTEND Family Medicine
PROC: 4B02XSZ Measurement of Cardiac Pacemaker, External Approach (ICD-10-PCS; principal; 2021-01-18)
DX: I13.0 Hypertensive heart and chronic kidney disease with heart failure and stage 1 through stage 4 chronic kidney disease, or unspecified chronic kidney disease (principal); J96.01 Acute respiratory failure with hypoxia; I50.43 Acute on chronic combined systolic (congestive) and diastolic (congestive) heart failure; N17.9 Acute kidney failure, unspecified; E22.2 Syndrome of inappropriate secretion of antidiuretic hormone; I44.2 Atrioventricular block, complete; N18.4 Chronic kidney disease, stage 4 (severe); Z66 Do not resuscitate; Z20.822 Contact with and (suspected) exposure to COVID-19; E03.9 Hypothyroidism, unspecified; K21.9 Gastro-esophageal reflux disease without esophagitis; E78.5 Hyperlipidemia, unspecified; F03.90 Unspecified dementia, unspecified severity, without behavioral disturbance, psychotic disturbance, mood disturbance, and anxiety; I49.5 Sick sinus syndrome; F41.9 Anxiety disorder, unspecified; D63.1 Anemia in chronic kidney disease; I48.0 Paroxysmal atrial fibrillation; I27.20 Pulmonary hypertension, unspecified; R29.6 Repeated falls; I42.9 Cardiomyopathy, unspecified; G62.9 Polyneuropathy, unspecified; E87.6 Hypokalemia; T50.2X5A Adverse effect of carbonic-anhydrase inhibitors, benzothiadiazides and other diuretics, initial encounter; I07.1 Rheumatic tricuspid insufficiency; Z85.3 Personal history of malignant neoplasm of breast; Z92.3 Personal history of irradiation; Z92.21 Personal history of antineoplastic chemotherapy; Z90.12 Acquired absence of left breast and nipple; Z90.710 Acquired absence of both cervix and uterus; Z88.0 Allergy status to penicillin; Z88.2 Allergy status to sulfonamides; Z88.8 Allergy status to other drugs, medicaments and biological substances; Z79.01 Long term (current) use of anticoagulants; Z79.899 Other long term (current) drug therapy; Z95.0 Presence of cardiac pacemaker; Z86.73 Personal history of transient ischemic attack (TIA), and cerebral infarction without residual deficits
CPT/HCPCS: 0240U; 36415; 71045; 80048; 80053; 80069; 81003; 82570; 83735; 83880; 84145; 84156; 84300; 84484; 84540; 85025; 85027; 85379; 85610; 85730; 87086; 93005; 93306; 97139; J1644; J1650; J1940; Q0169; S0028

== ENCOUNTER 2021-02-11 15:35 | Outpatient (CLI) | payer MEDICARE | END 2021-02-11 15:36 | disposition home or self-care (01) | LOC: BICCT 15:35 | PROVIDERS: ATTEND Surgery | DX: S06.301A Unspecified focal traumatic brain injury with loss of consciousness of 30 minutes or less, initial encounter (principal) | CPT/HCPCS: 70450 ==

== ENCOUNTER 2021-03-21 23:51 | Emergency (ER) | payer MEDICARE ==
[2021-03-22] MEDS ORDERED: Boostrix 0.5 ML (Tdap) VIAL ONE (00:18)
[2021-03-22] MEDS ORDERED: Bacitracin 1 PK ONE (00:33)
[2021-03-22 00:34] LABS: #Eosinphils 0.2 thou/uL (0.0-0.7); #Lymphocytes 1.3 thou/uL (1.20-3.40); #Monocytes 0.7 thou/uL (0.11-0.59); #Neutrophils 3.4 thou/uL (1.40-6.50); %Basophils 0.9 % (0.0-1.0); %Eosinophils 3.3 % (0.0-10.0); %Lymphocytes 23.2 % (21.0-51.0); %Monocytes 12.6 % (0.0-10.0); %Neutrophils 60.1 % (42.0-75.0); Hemoglobin 11.3 g/dL (12.0-16.0); Mean Corpuscular HGB CONC 35.1 g/dL (32.0-36.0); Mean Corpuscular Hemoglobin 36.6 pg (27.0-31.0); Mean Platelet Volume 7.2 fL (7.4-10.4); Platelet Count 175 thou/uL (130-400); RBC Distribution Width 13.5 % (11.5-14.5); Red Blood Cell (RBC) Count 3.07 mill/uL (4.20-5.40); White Blood Cell (WBC) Count 5.7 thou/uL (4.8-10.8)
[2021-03-22 00:51] LABS: ALT (SGPT) 15 U/L (8-55); AST (SGOT) 24 U/L (5-34); Albumin 3.5 g/dL (3.4-4.8); Alkaline Phosphatase 132 U/L (40-110); Anion Gap 16 mmol/L (10-20); BUN (Urea Nitrogen) 19 mg/dL (9.8-20.1); Bilirubin, Total 0.6 mg/dL (0.2-1.2); CK (CPK) 58 U/L (29-168); Calc. Creatinine Clearance 0 mL/min (70-130); Calcium 8.4 mg/dL (7.8-10.44); Carbon Dioxide 28 mmol/L (23-31); Chloride 98 mmol/L (98-107); Globulin 3.8 g/dL (2.4-3.5); Glucose 109 mg/dL (83-110); Potassium 3.6 mmol/L (3.5-5.1); Protein, Total 7.3 g/dL (5.8-8.1); Sodium 138 mmol/L (136-145)
[2021-03-22] MEDS ORDERED: Lidocaine 4% Cream 5 GM TUBE w/ Tegaderm ONE (01:15)
== END 2021-03-22 03:08 ==
LOC: ERS 23:51
DX: S51.812A Laceration without foreign body of left forearm, initial encounter (principal); S81.811A Laceration without foreign body, right lower leg, initial encounter; S00.81XA Abrasion of other part of head, initial encounter; S50.312A Abrasion of left elbow, initial encounter; W06.XXXA Fall from bed, initial encounter; E03.9 Hypothyroidism, unspecified; K21.9 Gastro-esophageal reflux disease without esophagitis; E78.5 Hyperlipidemia, unspecified; I10 Essential (primary) hypertension; Z85.3 Personal history of malignant neoplasm of breast; Z79.82 Long term (current) use of aspirin; Z79.899 Other long term (current) drug therapy
CPT/HCPCS: 12002; 36415; 70450; 72125; 80053; 82550; 84484; 85025; 90471; 90715; 93005

== ENCOUNTER 2021-04-01 22:54 | Emergency (ER) | payer MEDICARE ==
[2021-04-02 00:01] LABS: ALT (SGPT) 12 U/L (8-55); AST (SGOT) 20 U/L (5-34); Albumin 3.4 g/dL (3.4-4.8); Alkaline Phosphatase 148 U/L (40-110); Anion Gap 16 mmol/L (10-20); BUN (Urea Nitrogen) 21 mg/dL (9.8-20.1); Bilirubin, Total 0.7 mg/dL (0.2-1.2); Calc. Creatinine Clearance 0 mL/min (70-130); Calcium 8.6 mg/dL (7.8-10.44); Carbon Dioxide 27 mmol/L (23-31); Chloride 99 mmol/L (98-107); Glucose 110 mg/dL (83-110); Potassium 3.3 mmol/L (3.5-5.1); Protein, Total 7.4 g/dL (5.8-8.1); Sodium 139 mmol/L (136-145)
[2021-04-02] MEDS ORDERED: Acetaminophen 500 MG TAB ONE (00:23)
[2021-04-02 00:27] LABS: #Eosinphils 0.2 thou/uL (0.0-0.7); #Lymphocytes 0.8 thou/uL (1.20-3.40); #Monocytes 0.7 thou/uL (0.11-0.59); #Neutrophils 3.2 thou/uL (1.40-6.50); %Basophils 0.8 % (0.0-1.0); %Eosinophils 3.6 % (0.0-10.0); %Monocytes 14.2 % (0.0-10.0); %Neutrophils 64.4 % (42.0-75.0); Hemoglobin 11.3 g/dL (12.0-16.0); MDiff Complete? YES; Macrocytosis SLIGHT = 6-15 cells (100X) (0-5/hpf); Mean Corpuscular HGB CONC 33.8 g/dL (32.0-36.0); Mean Corpuscular Hemoglobin 35.6 pg (27.0-31.0); Mean Platelet Volume 7.1 fL (7.4-10.4); Platelet Count 166 thou/uL (130-400); Platelet Morphology Comment Appears Adequate; Polychromasia SLIGHT = 2-3 cells (100X) (0-2/hpf); RBC Distribution Width 14.5 % (11.5-14.5); Red Blood Cell (RBC) Count 3.19 mill/uL (4.20-5.40); White Blood Cell (WBC) Count 4.9 thou/uL (4.8-10.8)
== END 2021-04-02 02:09 | disposition home or self-care (01) ==
LOC: ERS 22:54
DX: S09.90XA Unspecified injury of head, initial encounter (principal); S51.011A Laceration without foreign body of right elbow, initial encounter; I87.8 Other specified disorders of veins; E03.9 Hypothyroidism, unspecified; K21.9 Gastro-esophageal reflux disease without esophagitis; E78.5 Hyperlipidemia, unspecified; I10 Essential (primary) hypertension; W18.30XA Fall on same level, unspecified, initial encounter; Y92.129 Unspecified place in nursing home as the place of occurrence of the external cause
CPT/HCPCS: 36415; 70450; 72125; 80053; 83880; 84484; 85025; 93005

== ENCOUNTER 2021-04-07 10:34 | Inpatient (IN) | payer MEDICARE ==
[2021-04-07 11:43] LABS: Bacteria/HPF 4+ HPF (None Seen); Bilirubin Negative (Negative); Blood, Urine Negative (Negative); Glucose, Urine (Dipstick) Normal (Negative); Ketone, Urine Negative (Negative); Leukocyte 75 Leu/uL (Negative); Nitrite Negative (Negative); Protein, Urine (Dipstick) Negative (Neg-Trace); RBC/HPF 0-3 HPF (0-3); Specific Gravity, Urine 1.007 (1.002-1.036); Squamous Epithelial 0-3 HPF (0-3); Urobilinogen Normal mg/dL (Less than 2); WBC/HPF Greater than 50 HPF (0-3); pH, Urine 7.5 (5.0-9.0)
[2021-04-07 11:46] LABS: Clarity Hazy (Clear)
[2021-04-07 12:00] LABS: #Eosinphils 0.1 thou/uL (0.0-0.7); #Lymphocytes 0.9 thou/uL (1.20-3.40); #Monocytes 0.6 thou/uL (0.11-0.59); #Neutrophils 3.5 thou/uL (1.40-6.50); %Basophils 0.9 % (0.0-1.0); %Eosinophils 1.8 % (0.0-10.0); %Lymphocytes 17.5 % (21.0-51.0); %Monocytes 11.7 % (0.0-10.0); %Neutrophils 68.2 % (42.0-75.0); Hemoglobin 12.3 g/dL (12.0-16.0); Mean Corpuscular HGB CONC 32.5 g/dL (32.0-36.0); Mean Corpuscular Hemoglobin 34.9 pg (27.0-31.0); Mean Platelet Volume 7.2 fL (7.4-10.4); Platelet Count 145 thou/uL (130-400); RBC Distribution Width 15.5 % (11.5-14.5); Red Blood Cell (RBC) Count 3.53 mill/uL (4.20-5.40); White Blood Cell (WBC) Count 5.1 thou/uL (4.8-10.8)
[2021-04-07] MEDS ORDERED: Furosemide 40 MG/4 ML VIAL ONE (12:13)
[2021-04-07 12:22] LABS: ALT (SGPT) 21 U/L (8-55); AST (SGOT) 32 U/L (5-34); Albumin 3.8 g/dL (3.4-4.8); Alkaline Phosphatase 159 U/L (40-110); Anion Gap 17 mmol/L (10-20); BUN (Urea Nitrogen) 20 mg/dL (9.8-20.1); Bilirubin, Total 1.5 mg/dL (0.2-1.2); Calc. Creatinine Clearance 0 mL/min (70-130); Carbon Dioxide 31 mmol/L (23-31); Chloride 96 mmol/L (98-107); Globulin 4.1 g/dL (2.4-3.5); Glucose 95 mg/dL (83-110); Protein, Total 7.9 g/dL (5.8-8.1); Sodium 141 mmol/L (136-145)
[2021-04-07 12:26] LABS: Potassium 2.9 mmol/L (3.5-5.1)
[2021-04-07 12:39] LABS: CKMB 1.4 ng/mL (0-6.6)
[2021-04-07] MEDS ORDERED: Magnesium 2 GM/50 ML BAG (IN WATER) ONE (13:15)
[2021-04-07] MEDS ORDERED: Potassium Chloride 20 MEQ TAB ONE (13:15)
[2021-04-07] MEDS ORDERED: Potassium Bicarbonate/Cit Ac 20 MEQ TAB PO SCH (13:45)
[2021-04-07] MEDS ORDERED: Heparin 5,000 UNITS/ML VIAL SC SCH (15:00)
[2021-04-07] MEDS ORDERED: Mag-Al 1200 mg/1200 mg/30 ML UDCUP PO PRN (15:16)
[2021-04-07] MEDS ORDERED: Promethazine 25 MG TAB PO PRN (15:26)
[2021-04-07 15:30] LABS: Anion Gap 15 mmol/L (10-20); BUN (Urea Nitrogen) 20 mg/dL (9.8-20.1); Calc. Creatinine Clearance 0 mL/min (70-130); Calcium 8.2 mg/dL (7.8-10.44); Carbon Dioxide 31 mmol/L (23-31); Chloride 97 mmol/L (98-107); Glucose 118 mg/dL (83-110); Magnesium 3.1 mg/dL (1.6-2.6); Potassium 3.5 mmol/L (3.5-5.1); Sodium 139 mmol/L (136-145)
[2021-04-07] MEDS: Potassium Chloride 20 MEQ in Premix Bag 1 BAG IVPB SCH ×3 (17:15→18:12)
[2021-04-07] MEDS: Artificial Tear Sol 15 ML BOT EA EYE SCH ×2 (18:10→20:31)
[2021-04-07] MEDS: Carvedilol 6.25 MG TAB PO SCH (18:11)
[2021-04-07 18:41] LABS: Troponin I 0.018 ng/mL (< 0.028)
[2021-04-07] MEDS ORDERED: Furosemide 40 MG/4 ML VIAL SLOW IVP SCH (20:00)
[2021-04-07] MEDS: Atorvastatin Calcium 10 MG TAB PO SCH (20:30)
[2021-04-07] MEDS: Mirtazapine 15 MG TAB PO SCH (20:30)
[2021-04-07] MEDS: Meclizine HCl 12.5 MG TAB PO SCH (20:30)
[2021-04-07] MEDS: Divalproex Sodium 125 mg Sprinkle Capsule PO SCH (20:30)
[2021-04-07] MEDS: Ferrous Sulfate 325 MG TAB PO SCH (20:30)
[2021-04-07] MEDS: Ketotifen Fumarate 0.025% Ophth Soln 5 ml Bottle EA EYE SCH (20:30)
[2021-04-07] MEDS ORDERED: Sodium Bicarbonate Tab 325 MG TAB PO SCH (21:00)
[2021-04-08] MEDS: Acetaminophen 325 MG TAB PO PRN ×3 (03:12→20:18)
[2021-04-08 04:36] LABS: ALT (SGPT) 16 U/L (8-55); AST (SGOT) 28 U/L (5-34); Albumin 3.2 g/dL (3.4-4.8); Alkaline Phosphatase 141 U/L (40-110); Anion Gap 14 mmol/L (10-20); BUN (Urea Nitrogen) 18 mg/dL (9.8-20.1); Bilirubin, Total 1.2 mg/dL (0.2-1.2); Calc. Creatinine Clearance 17 mL/min (70-130); Calcium 8.5 mg/dL (7.8-10.44); Carbon Dioxide 32 mmol/L (23-31); Chloride 99 mmol/L (98-107); Globulin 3.6 g/dL (2.4-3.5); Glucose 99 mg/dL (83-110); Potassium 4.2 mmol/L (3.5-5.1); Protein, Total 6.8 g/dL (5.8-8.1); Sodium 141 mmol/L (136-145)
[2021-04-08 05:03] LABS: #Eosinphils 0.1 thou/uL (0.0-0.7); #Lymphocytes 0.9 thou/uL (1.20-3.40); #Monocytes 0.8 thou/uL (0.11-0.59); #Neutrophils 5.3 thou/uL (1.40-6.50); %Basophils 0.2 % (0.0-1.0); %Monocytes 11.4 % (0.0-10.0); %Neutrophils 73.5 % (42.0-75.0); Hemoglobin 10.7 g/dL (12.0-16.0); Mean Corpuscular HGB CONC 33.7 g/dL (32.0-36.0); Mean Platelet Volume 7.1 fL (7.4-10.4); Platelet Count 138 thou/uL (130-400); RBC Distribution Width 15.4 % (11.5-14.5); Red Blood Cell (RBC) Count 2.98 mill/uL (4.20-5.40); White Blood Cell (WBC) Count 7.2 thou/uL (4.8-10.8)
[2021-04-08] MEDS: Levothyroxine Sodium 75 MCG TAB PO SCH (05:34)
[2021-04-08] MEDS ORDERED: Furosemide 40 MG/4 ML VIAL SLOW IVP SCH (06:00)
[2021-04-08] MEDS ORDERED: Potassium Bicarbonate/Cit Ac 20 MEQ TAB PO SCH (08:00)
[2021-04-08] MEDS: Calcium Carbonate 600 MG + Vit D TAB PO SCH (08:55)
[2021-04-08] MEDS: Fish Oil 1,000 MG CAP PO SCH (08:55)
[2021-04-08] MEDS: Cyanocobalamin (Vitamin B-12) 1,000 MCG TAB PO SCH (08:56)
[2021-04-08] MEDS: Ascorbic Acid 500 mg Chewable Tablet PO SCH (08:56)
[2021-04-08] MEDS: Carvedilol 6.25 MG TAB PO SCH ×2 (08:56→17:45)
[2021-04-08] MEDS: Anastrozole 1 MG TAB PO SCH (08:56)
[2021-04-08] MEDS: Meclizine HCl 12.5 MG TAB PO SCH ×2 (08:57→20:13)
[2021-04-08] MEDS: Ferrous Sulfate 325 MG TAB PO SCH ×2 (08:57→20:13)
[2021-04-08] MEDS: Divalproex Sodium 125 mg Sprinkle Capsule PO SCH ×2 (08:57→20:13)
[2021-04-08] MEDS: Amiodarone 200 MG TAB PO SCH (08:57)
[2021-04-08] MEDS: Cholecalciferol 1,000 UNITS (25 MCG) TAB PO SCH (08:57)
[2021-04-08] MEDS ORDERED: Enoxaparin Sodium 30 MG/0.3 ML SYRINGE SC SCH (09:00)
[2021-04-08] MEDS ORDERED: Apixaban 2.5 MG TAB PO SCH (09:00)
[2021-04-08] MEDS ORDERED: [UNRECOGNIZED DRUG - REMARK] FS SCH (10:00)
[2021-04-08] MEDS: Artificial Tear Sol 15 ML BOT EA EYE SCH ×4 (10:44→20:12)
[2021-04-08] MEDS: Ketotifen Fumarate 0.025% Ophth Soln 5 ml Bottle EA EYE SCH ×2 (10:45→20:12)
[2021-04-08] MEDS: Fluticasone Propionate Nasal Spray 16 gm Bottle NASAL SCH (10:45)
[2021-04-08] MEDS ORDERED: Spironolactone 25 MG TAB PO SCH (11:45)
[2021-04-08] MEDS ORDERED: Metolazone 2.5 MG TAB PO SCH (11:45)
[2021-04-08 12:05] LABS: SARS-CoV-2 PCR by NAA Not Detected (NotDetected)
[2021-04-08] MEDS: Furosemide 40 MG/4 ML VIAL SLOW IVP SCH ×2 (15:38→22:09)
[2021-04-08] MEDS ORDERED: Lidocaine 5% Patch TD PRN (16:38)
[2021-04-08] MEDS ORDERED: Transdermal Patch Removal TOP PRN (16:50)
[2021-04-08] MEDS ORDERED: Capsaicin 0.025% Cream 60 gm Tube TOP PRN (16:54)
[2021-04-08] MEDS: Mirtazapine 15 MG TAB PO SCH (20:12)
[2021-04-08] MEDS: Atorvastatin Calcium 10 MG TAB PO SCH (20:13)
[2021-04-08] MEDS: Heparin 5,000 UNITS/ML VIAL SC SCH (20:13)
[2021-04-08] MEDS: Potassium Chloride 20 MEQ TAB PO SCH (22:00)
[2021-04-09] MEDS: Acetaminophen 325 MG TAB PO PRN ×3 (02:30→16:37)
[2021-04-09] MEDS: Furosemide 40 MG/4 ML VIAL SLOW IVP SCH ×2 (05:19→18:12)
[2021-04-09] MEDS: Levothyroxine Sodium 75 MCG TAB PO SCH (05:19)
[2021-04-09 05:46] LABS: ALT (SGPT) 14 U/L (8-55); AST (SGOT) 19 U/L (5-34); Albumin 3.1 g/dL (3.4-4.8); Alkaline Phosphatase 142 U/L (40-110); Anion Gap 18 mmol/L (10-20); BUN (Urea Nitrogen) 19 mg/dL (9.8-20.1); Bilirubin, Total 1.3 mg/dL (0.2-1.2); Calc. Creatinine Clearance 16 mL/min (70-130); Calcium 7.8 mg/dL (7.8-10.44); Carbon Dioxide 25 mmol/L (23-31); Chloride 97 mmol/L (98-107); Globulin 3.5 g/dL (2.4-3.5); Glucose 81 mg/dL (83-110); Potassium 4.2 mmol/L (3.5-5.1); Protein, Total 6.6 g/dL (5.8-8.1); Sodium 136 mmol/L (136-145)
[2021-04-09 07:17] LABS: #Eosinphils 0.2 thou/uL (0.0-0.7); #Lymphocytes 1.1 thou/uL (1.20-3.40); #Monocytes 0.7 thou/uL (0.11-0.59); #Neutrophils 4.3 thou/uL (1.40-6.50); %Basophils 0.2 % (0.0-1.0); %Eosinophils 3.8 % (0.0-10.0); %Lymphocytes 16.8 % (21.0-51.0); %Monocytes 10.8 % (0.0-10.0); %Neutrophils 68.4 % (42.0-75.0); Mean Corpuscular HGB CONC 32.4 g/dL (32.0-36.0); Mean Platelet Volume 7.6 fL (7.4-10.4); Platelet Count 150 thou/uL (130-400); Red Blood Cell (RBC) Count 3.43 mill/uL (4.20-5.40); White Blood Cell (WBC) Count 6.3 thou/uL (4.8-10.8)
[2021-04-09] MEDS: Fish Oil 1,000 MG CAP PO SCH (08:19)
[2021-04-09] MEDS: Cyanocobalamin (Vitamin B-12) 1,000 MCG TAB PO SCH (08:19)
[2021-04-09] MEDS: Meclizine HCl 12.5 MG TAB PO SCH ×2 (08:20→20:08)
[2021-04-09] MEDS: Potassium Chloride 20 MEQ TAB PO SCH ×2 (08:20→16:38)
[2021-04-09] MEDS: Calcium Carbonate 600 MG + Vit D TAB PO SCH (08:20)
[2021-04-09] MEDS: Cholecalciferol 1,000 UNITS (25 MCG) TAB PO SCH (08:20)
[2021-04-09] MEDS: Ascorbic Acid 500 mg Chewable Tablet PO SCH (08:20)
[2021-04-09] MEDS: Artificial Tear Sol 15 ML BOT EA EYE SCH ×4 (08:20→20:09)
[2021-04-09] MEDS: Carvedilol 6.25 MG TAB PO SCH ×2 (08:21→16:38)
[2021-04-09] MEDS: Ferrous Sulfate 325 MG TAB PO SCH ×2 (08:21→20:08)
[2021-04-09] MEDS: Anastrozole 1 MG TAB PO SCH (08:21)
[2021-04-09] MEDS: Fluticasone Propionate Nasal Spray 16 gm Bottle NASAL SCH (08:21)
[2021-04-09] MEDS: Divalproex Sodium 125 mg Sprinkle Capsule PO SCH ×2 (08:21→20:09)
[2021-04-09] MEDS: Amiodarone 200 MG TAB PO SCH (08:21)
[2021-04-09] MEDS: Ketotifen Fumarate 0.025% Ophth Soln 5 ml Bottle EA EYE SCH ×2 (08:22→20:09)
[2021-04-09] MEDS ORDERED: Metolazone 2.5 MG TAB PO SCH (08:30)
[2021-04-09] MEDS ORDERED: Cephalexin 250 MG CAP PO SCH ×3 (09:00→21:00)
[2021-04-09] MEDS: Heparin 5,000 UNITS/ML VIAL SC SCH ×2 (09:24→20:08)
[2021-04-09] MEDS: Atorvastatin Calcium 10 MG TAB PO SCH (20:08)
[2021-04-09] MEDS: Cephalexin 250 MG CAP PO SCH (20:08)
[2021-04-09] MEDS: Mirtazapine 15 MG TAB PO SCH (20:09)
[2021-04-09] MEDS: Lorazepam 1 MG TAB PO PRN (20:09)
[2021-04-10] MEDS: Acetaminophen 325 MG TAB PO PRN (02:35)
[2021-04-10 04:53] LABS: #Eosinphils 0.2 thou/uL (0.0-0.7); #Lymphocytes 1.2 thou/uL (1.20-3.40); #Monocytes 0.9 thou/uL (0.11-0.59); #Neutrophils 3.9 thou/uL (1.40-6.50); %Basophils 0.7 % (0.0-1.0); %Eosinophils 2.6 % (0.0-10.0); %Lymphocytes 18.9 % (21.0-51.0); %Monocytes 13.8 % (0.0-10.0); Hemoglobin 11.5 g/dL (12.0-16.0); Mean Corpuscular HGB CONC 33.1 g/dL (32.0-36.0); Mean Corpuscular Hemoglobin 35.8 pg (27.0-31.0); Mean Platelet Volume 7.6 fL (7.4-10.4); Platelet Count 144 thou/uL (130-400); RBC Distribution Width 16.1 % (11.5-14.5); Red Blood Cell (RBC) Count 3.21 mill/uL (4.20-5.40); White Blood Cell (WBC) Count 6.2 thou/uL (4.8-10.8)
[2021-04-10 05:22] LABS: Anion Gap 14 mmol/L (10-20); BUN (Urea Nitrogen) 22 mg/dL (9.8-20.1); Calc. Creatinine Clearance 15 mL/min (70-130); Calcium 8.4 mg/dL (7.8-10.44); Carbon Dioxide 33 mmol/L (23-31); Chloride 94 mmol/L (98-107); Glucose 100 mg/dL (83-110); Potassium 4.2 mmol/L (3.5-5.1); Sodium 137 mmol/L (136-145)
[2021-04-10] MEDS: Furosemide 40 MG/4 ML VIAL SLOW IVP SCH (05:41)
[2021-04-10] MEDS: Levothyroxine Sodium 75 MCG TAB PO SCH (05:42)
[2021-04-10] MEDS ORDERED: Furosemide 40 MG TAB PO SCH (09:00)
[2021-04-10] MEDS: Ascorbic Acid 500 mg Chewable Tablet PO SCH (09:46)
[2021-04-10] MEDS: Calcium Carbonate 600 MG + Vit D TAB PO SCH (09:47)
[2021-04-10] MEDS: Carvedilol 6.25 MG TAB PO SCH ×2 (09:48→16:38)
[2021-04-10] MEDS: Cephalexin 250 MG CAP PO SCH ×2 (09:49→19:29)
[2021-04-10] MEDS: Amiodarone 200 MG TAB PO SCH (09:49)
[2021-04-10] MEDS: Ferrous Sulfate 325 MG TAB PO SCH ×2 (09:49→19:29)
[2021-04-10] MEDS: Divalproex Sodium 125 mg Sprinkle Capsule PO SCH ×2 (09:49→19:29)
[2021-04-10] MEDS: Cyanocobalamin (Vitamin B-12) 1,000 MCG TAB PO SCH (09:49)
[2021-04-10] MEDS: Cholecalciferol 1,000 UNITS (25 MCG) TAB PO SCH (09:50)
[2021-04-10] MEDS: Anastrozole 1 MG TAB PO SCH (09:50)
[2021-04-10] MEDS: Fish Oil 1,000 MG CAP PO SCH (09:50)
[2021-04-10] MEDS: Meclizine HCl 12.5 MG TAB PO SCH ×2 (09:50→19:30)
[2021-04-10] MEDS: Heparin 5,000 UNITS/ML VIAL SC SCH ×2 (09:51→19:28)
[2021-04-10] MEDS: Potassium Chloride 20 MEQ TAB PO SCH ×2 (09:51→16:35)
[2021-04-10] MEDS: Artificial Tear Sol 15 ML BOT EA EYE SCH ×4 (12:06→19:32)
[2021-04-10] MEDS: Ketotifen Fumarate 0.025% Ophth Soln 5 ml Bottle EA EYE SCH ×2 (12:06→19:31)
[2021-04-10] MEDS: Fluticasone Propionate Nasal Spray 16 gm Bottle NASAL SCH (12:07)
[2021-04-10] MEDS: Atorvastatin Calcium 10 MG TAB PO SCH (19:29)
[2021-04-10] MEDS: Lorazepam 1 MG TAB PO PRN (19:29)
[2021-04-10] MEDS: Mirtazapine 15 MG TAB PO SCH (19:30)
[2021-04-10] MEDS ORDERED: Furosemide 20 MG TAB PO SCH (21:00)
[2021-04-11 04:50] LABS: #Eosinphils 0.2 thou/uL (0.0-0.7); #Lymphocytes 1.4 thou/uL (1.20-3.40); #Monocytes 0.9 thou/uL (0.11-0.59); #Neutrophils 3.6 thou/uL (1.40-6.50); %Basophils 0.5 % (0.0-1.0); %Eosinophils 3.2 % (0.0-10.0); %Lymphocytes 23.4 % (21.0-51.0); %Monocytes 14.1 % (0.0-10.0); %Neutrophils 58.8 % (42.0-75.0); Hemoglobin 12.9 g/dL (12.0-16.0); Mean Corpuscular HGB CONC 33.5 g/dL (32.0-36.0); Mean Corpuscular Hemoglobin 35.6 pg (27.0-31.0); Mean Platelet Volume 7.6 fL (7.4-10.4); Platelet Count 171 thou/uL (130-400); Red Blood Cell (RBC) Count 3.64 mill/uL (4.20-5.40); White Blood Cell (WBC) Count 6.1 thou/uL (4.8-10.8)
[2021-04-11 05:11] LABS: Anion Gap 16 mmol/L (10-20); BUN (Urea Nitrogen) 24 mg/dL (9.8-20.1); Calc. Creatinine Clearance 12 mL/min (70-130); Calcium 9.2 mg/dL (7.8-10.44); Carbon Dioxide 28 mmol/L (23-31); Chloride 94 mmol/L (98-107); Glucose 88 mg/dL (83-110); Potassium 4.3 mmol/L (3.5-5.1); Sodium 134 mmol/L (136-145)
[2021-04-11] MEDS: Levothyroxine Sodium 75 MCG TAB PO SCH (05:21)
[2021-04-11] MEDS: Acetaminophen 325 MG TAB PO PRN ×2 (06:18→11:53)
[2021-04-11] MEDS: Anastrozole 1 MG TAB PO SCH (09:21)
[2021-04-11] MEDS: Carvedilol 6.25 MG TAB PO SCH ×2 (09:21→16:45)
[2021-04-11] MEDS: Ascorbic Acid 500 mg Chewable Tablet PO SCH (09:21)
[2021-04-11] MEDS: Cephalexin 250 MG CAP PO SCH ×2 (09:21→20:36)
[2021-04-11] MEDS: Cholecalciferol 1,000 UNITS (25 MCG) TAB PO SCH (09:21)
[2021-04-11] MEDS: Calcium Carbonate 600 MG + Vit D TAB PO SCH (09:22)
[2021-04-11] MEDS: Cyanocobalamin (Vitamin B-12) 1,000 MCG TAB PO SCH (09:22)
[2021-04-11] MEDS: Amiodarone 200 MG TAB PO SCH (09:22)
[2021-04-11] MEDS: Ketotifen Fumarate 0.025% Ophth Soln 5 ml Bottle EA EYE SCH ×2 (09:23→20:35)
[2021-04-11] MEDS: Heparin 5,000 UNITS/ML VIAL SC SCH ×2 (09:23→20:36)
[2021-04-11] MEDS: Divalproex Sodium 125 mg Sprinkle Capsule PO SCH ×2 (09:23→20:36)
[2021-04-11] MEDS: Fluticasone Propionate Nasal Spray 16 gm Bottle NASAL SCH (09:23)
[2021-04-11] MEDS: Artificial Tear Sol 15 ML BOT EA EYE SCH ×4 (09:23→20:35)
[2021-04-11] MEDS: Potassium Chloride 20 MEQ TAB PO SCH (09:25)
[2021-04-11] MEDS: Atorvastatin Calcium 10 MG TAB PO SCH (20:36)
[2021-04-11] MEDS: Mirtazapine 15 MG TAB PO SCH (20:36)
[2021-04-11] MEDS: Lorazepam 1 MG TAB PO PRN (20:36)
[2021-04-12 05:05] LABS: #Basophils 0.1 thou/uL (0.0-0.2); #Eosinphils 0.2 thou/uL (0.0-0.7); #Lymphocytes 1.4 thou/uL (1.20-3.40); #Monocytes 0.7 thou/uL (0.11-0.59); #Neutrophils 2.5 thou/uL (1.40-6.50); %Eosinophils 3.9 % (0.0-10.0); %Lymphocytes 29.1 % (21.0-51.0); %Monocytes 13.4 % (0.0-10.0); %Neutrophils 52.5 % (42.0-75.0); Hemoglobin 13.3 g/dL (12.0-16.0); Mean Corpuscular Hemoglobin 35.5 pg (27.0-31.0); Platelet Count 186 thou/uL (130-400); RBC Distribution Width 16.1 % (11.5-14.5); Red Blood Cell (RBC) Count 3.73 mill/uL (4.20-5.40); White Blood Cell (WBC) Count 4.8 thou/uL (4.8-10.8)
[2021-04-12 05:26] LABS: Albumin 3.2 g/dL (3.4-4.8); Anion Gap 16 mmol/L (10-20); BUN (Urea Nitrogen) 25 mg/dL (9.8-20.1); BUN/Creatinine Ratio 9.69; Calc. Creatinine Clearance 13 mL/min (70-130); Calcium 8.9 mg/dL (7.8-10.44); Carbon Dioxide 26 mmol/L (23-31); Chloride 95 mmol/L (98-107); Glucose 90 mg/dL (83-110); Phosphorus 3.6 mg/dL (2.3-4.7); Potassium 3.9 mmol/L (3.5-5.1); Sodium 133 mmol/L (136-145)
[2021-04-12] MEDS: Levothyroxine Sodium 75 MCG TAB PO SCH (05:36)
[2021-04-12] MEDS: Artificial Tear Sol 15 ML BOT EA EYE SCH ×3 (10:23→16:03)
[2021-04-12] MEDS: Fluticasone Propionate Nasal Spray 16 gm Bottle NASAL SCH (10:23)
[2021-04-12] MEDS: Ascorbic Acid 500 mg Chewable Tablet PO SCH (10:23)
[2021-04-12] MEDS: Anastrozole 1 MG TAB PO SCH (10:23)
[2021-04-12] MEDS: Divalproex Sodium 125 mg Sprinkle Capsule PO SCH ×2 (10:23→20:45)
[2021-04-12] MEDS: Cephalexin 250 MG CAP PO SCH ×2 (10:23→20:45)
[2021-04-12] MEDS: Cholecalciferol 1,000 UNITS (25 MCG) TAB PO SCH (10:23)
[2021-04-12] MEDS: Carvedilol 6.25 MG TAB PO SCH ×2 (10:23→16:03)
[2021-04-12] MEDS: Cyanocobalamin (Vitamin B-12) 1,000 MCG TAB PO SCH (10:23)
[2021-04-12] MEDS: Calcium Carbonate 600 MG + Vit D TAB PO SCH (10:23)
[2021-04-12] MEDS: Amiodarone 200 MG TAB PO SCH (10:23)
[2021-04-12] MEDS: Heparin 5,000 UNITS/ML VIAL SC SCH ×2 (10:24→20:45)
[2021-04-12] MEDS: Ketotifen Fumarate 0.025% Ophth Soln 5 ml Bottle EA EYE SCH (10:24)
[2021-04-12] MEDS ORDERED: Megestrol Acetate 800 MG/20 ML UDCUP PO SCH (10:30)
[2021-04-12] MEDS: Atorvastatin Calcium 10 MG TAB PO SCH (20:45)
[2021-04-12] MEDS: Polyethylene Glycol OPTH DROP 15 ML BOT EA EYE SCH (21:55)
[2021-04-13] MEDS: Ketotifen Fumarate 0.025% Ophth Soln 5 ml Bottle EA EYE SCH ×3 (00:52→20:35)
[2021-04-13] MEDS: Levothyroxine Sodium 75 MCG TAB PO SCH (06:43)
[2021-04-13] MEDS: Acetaminophen 325 MG TAB PO PRN ×2 (06:43→12:41)
[2021-04-13 06:54] LABS: #Basophils 0.1 thou/uL (0.0-0.2); #Eosinphils 0.2 thou/uL (0.0-0.7); #Lymphocytes 1.4 thou/uL (1.20-3.40); #Monocytes 0.9 thou/uL (0.11-0.59); #Neutrophils 3.9 thou/uL (1.40-6.50); %Basophils 1.4 % (0.0-1.0); %Eosinophils 3.6 % (0.0-10.0); %Lymphocytes 21.2 % (21.0-51.0); %Neutrophils 59.9 % (42.0-75.0); Hemoglobin 13.4 g/dL (12.0-16.0); Mean Corpuscular HGB CONC 32.4 g/dL (32.0-36.0); Mean Corpuscular Hemoglobin 34.7 pg (27.0-31.0); Mean Platelet Volume 7.1 fL (7.4-10.4); Platelet Count 188 thou/uL (130-400); Red Blood Cell (RBC) Count 3.86 mill/uL (4.20-5.40); White Blood Cell (WBC) Count 6.5 thou/uL (4.8-10.8)
[2021-04-13 07:09] LABS: Albumin 3.2 g/dL (3.4-4.8); Anion Gap 15 mmol/L (10-20); BUN (Urea Nitrogen) 30 mg/dL (9.8-20.1); BUN/Creatinine Ratio 10.45; Calc. Creatinine Clearance 11 mL/min (70-130); Calcium 8.7 mg/dL (7.8-10.44); Carbon Dioxide 25 mmol/L (23-31); Chloride 98 mmol/L (98-107); Glucose 99 mg/dL (83-110); Phosphorus 3.8 mg/dL (2.3-4.7); Potassium 4.1 mmol/L (3.5-5.1); Sodium 134 mmol/L (136-145)
[2021-04-13] MEDS: Cephalexin 250 MG CAP PO SCH ×2 (08:56→20:40)
[2021-04-13] MEDS: Carvedilol 6.25 MG TAB PO SCH ×2 (08:56→16:57)
[2021-04-13] MEDS: Divalproex Sodium 125 mg Sprinkle Capsule PO SCH ×2 (08:56→20:33)
[2021-04-13] MEDS: Cholecalciferol 1,000 UNITS (25 MCG) TAB PO SCH (08:57)
[2021-04-13] MEDS: Heparin 5,000 UNITS/ML VIAL SC SCH ×2 (08:57→20:33)
[2021-04-13] MEDS: Polyethylene Glycol OPTH DROP 15 ML BOT EA EYE SCH ×5 (08:57→20:34)
[2021-04-13] MEDS: Amiodarone 200 MG TAB PO SCH (08:57)
[2021-04-13] MEDS: Calcium Carbonate 600 MG + Vit D TAB PO SCH (08:57)
[2021-04-13] MEDS: Ascorbic Acid 500 mg Chewable Tablet PO SCH (08:57)
[2021-04-13] MEDS: Cyanocobalamin (Vitamin B-12) 1,000 MCG TAB PO SCH (08:57)
[2021-04-13] MEDS: Fluticasone Propionate Nasal Spray 16 gm Bottle NASAL SCH (08:59)
[2021-04-13] MEDS: Anastrozole 1 MG TAB PO SCH (09:01)
[2021-04-13] MEDS ORDERED: Lorazepam 0.5 MG TAB PO SCH (11:00)
[2021-04-13] MEDS: Lactated Ringer's 1,000 ML IV SCH (11:55)
[2021-04-13 17:00] LABS: Creatinine, Urine 154.43 mg/dL (47-110)
[2021-04-13] MEDS: Atorvastatin Calcium 10 MG TAB PO SCH (20:33)
[2021-04-13] MEDS: Melatonin 3 MG TAB PO PRN (20:33)
[2021-04-14] MEDS: Levothyroxine Sodium 75 MCG TAB PO SCH (05:41)
[2021-04-14 07:08] LABS: Hemoglobin 12.6 g/dL (12.0-16.0); Mean Corpuscular HGB CONC 31.8 g/dL (32.0-36.0); Mean Corpuscular Hemoglobin 34.6 pg (27.0-31.0); Mean Platelet Volume 7.4 fL (7.4-10.4); Platelet Count 181 thou/uL (130-400); RBC Distribution Width 16.2 % (11.5-14.5); Red Blood Cell (RBC) Count 3.65 mill/uL (4.20-5.40); White Blood Cell (WBC) Count 5.3 thou/uL (4.8-10.8)
[2021-04-14 07:18] LABS: Anion Gap 15 mmol/L (10-20); BUN (Urea Nitrogen) 29 mg/dL (9.8-20.1); BUN/Creatinine Ratio 9.18; Calc. Creatinine Clearance 11 mL/min (70-130); Calcium 8.6 mg/dL (7.8-10.44); Carbon Dioxide 24 mmol/L (23-31); Chloride 100 mmol/L (98-107); Glucose 113 mg/dL (83-110); Phosphorus 3.4 mg/dL (2.3-4.7); Sodium 135 mmol/L (136-145)
[2021-04-14] MEDS: Ascorbic Acid 500 mg Chewable Tablet PO SCH (09:28)
[2021-04-14] MEDS: Cyanocobalamin (Vitamin B-12) 1,000 MCG TAB PO SCH (09:28)
[2021-04-14] MEDS: Calcium Carbonate 600 MG + Vit D TAB PO SCH (09:29)
[2021-04-14] MEDS: Divalproex Sodium 125 mg Sprinkle Capsule PO SCH ×2 (09:29→20:43)
[2021-04-14] MEDS: Cholecalciferol 1,000 UNITS (25 MCG) TAB PO SCH (09:29)
[2021-04-14] MEDS: Amiodarone 200 MG TAB PO SCH (09:29)
[2021-04-14] MEDS: Heparin 5,000 UNITS/ML VIAL SC SCH ×2 (09:30→20:43)
[2021-04-14] MEDS ORDERED: Lactated Ringer's 1,000 ML IV SCH (09:30)
[2021-04-14] MEDS: Anastrozole 1 MG TAB PO SCH (09:31)
[2021-04-14] MEDS: Ketotifen Fumarate 0.025% Ophth Soln 5 ml Bottle EA EYE SCH ×2 (09:31→20:43)
[2021-04-14] MEDS: Polyethylene Glycol OPTH DROP 15 ML BOT EA EYE SCH ×4 (09:31→20:45)
[2021-04-14] MEDS: Fluticasone Propionate Nasal Spray 16 gm Bottle NASAL SCH (09:31)
[2021-04-14] MEDS: Carvedilol 6.25 MG TAB PO SCH (09:32)
[2021-04-14] MEDS: Cephalexin 250 MG CAP PO SCH (09:32)
[2021-04-14 10:06] LABS: Band 7 % (5-11); Eosinophils 4 % (0-10); Lymphocytes 29 % (21-51); MDiff Complete? YES; Macrocytosis SLIGHT = 6-15 cells (100X) (0-5/hpf); Monocytes 6 % (0-10); Neutrophil 49 % (42-75); Platelet Morphology Comment Appears Adequate; Polychromasia SLIGHT = 2-3 cells (100X) (0-2/hpf); Reactive Lymphocytes 3 % (0-10)
[2021-04-14] MEDS: Lactated Ringer's 1,000 ML IV SCH (14:31)
[2021-04-14] MEDS: Acetaminophen 325 MG TAB PO PRN ×2 (17:22→23:17)
[2021-04-14] MEDS ORDERED: diphenhydrAMINE 50 MG/ML VIAL IVP SCH (18:00)
[2021-04-14] MEDS: Melatonin 3 MG TAB PO PRN (20:42)
[2021-04-14] MEDS: Atorvastatin Calcium 10 MG TAB PO SCH (20:43)
[2021-04-15] MEDS: Lactated Ringer's 1,000 ML IV SCH ×2 (01:33→14:15)
[2021-04-15] MEDS ORDERED: Lidocaine 5% Patch TD SCH (01:45)
[2021-04-15] MEDS: Acetaminophen 325 MG TAB PO PRN ×4 (03:13→19:54)
[2021-04-15] MEDS: Levothyroxine Sodium 75 MCG TAB PO SCH (05:05)
[2021-04-15 07:05] LABS: #Eosinphils 0.4 thou/uL (0.0-0.7); #Monocytes 0.7 thou/uL (0.11-0.59); #Neutrophils 2.9 thou/uL (1.40-6.50); %Basophils 0.8 % (0.0-1.0); %Lymphocytes 20.4 % (21.0-51.0); %Monocytes 14.5 % (0.0-10.0); %Neutrophils 57.3 % (42.0-75.0); Hemoglobin 11.7 g/dL (12.0-16.0); Mean Corpuscular HGB CONC 33.2 g/dL (32.0-36.0); Mean Corpuscular Hemoglobin 36.2 pg (27.0-31.0); Mean Platelet Volume 7.5 fL (7.4-10.4); Platelet Count 177 thou/uL (130-400); RBC Distribution Width 15.8 % (11.5-14.5); Red Blood Cell (RBC) Count 3.22 mill/uL (4.20-5.40); White Blood Cell (WBC) Count 5.1 thou/uL (4.8-10.8)
[2021-04-15 07:23] LABS: Albumin 2.9 g/dL (3.4-4.8); Anion Gap 11 mmol/L (10-20); BUN (Urea Nitrogen) 26 mg/dL (9.8-20.1); BUN/Creatinine Ratio 8.78; Calc. Creatinine Clearance 11 mL/min (70-130); Calcium 8.2 mg/dL (7.8-10.44); Carbon Dioxide 25 mmol/L (23-31); Chloride 100 mmol/L (98-107); Glucose 93 mg/dL (83-110); Potassium 3.8 mmol/L (3.5-5.1); Sodium 132 mmol/L (136-145)
[2021-04-15] MEDS: Cyanocobalamin (Vitamin B-12) 1,000 MCG TAB PO SCH (09:08)
[2021-04-15] MEDS: Megestrol Acetate 800 MG/20 ML UDCUP PO SCH (09:08)
[2021-04-15] MEDS: Divalproex Sodium 125 mg Sprinkle Capsule PO SCH ×2 (09:08→19:56)
[2021-04-15] MEDS: Anastrozole 1 MG TAB PO SCH (09:09)
[2021-04-15] MEDS: Amiodarone 200 MG TAB PO SCH (09:09)
[2021-04-15] MEDS: Cholecalciferol 1,000 UNITS (25 MCG) TAB PO SCH (09:09)
[2021-04-15] MEDS: Ascorbic Acid 500 mg Chewable Tablet PO SCH (09:09)
[2021-04-15] MEDS: Calcium Carbonate 600 MG + Vit D TAB PO SCH (09:09)
[2021-04-15] MEDS: Heparin 5,000 UNITS/ML VIAL SC SCH ×2 (09:10→19:56)
[2021-04-15] MEDS: Ketotifen Fumarate 0.025% Ophth Soln 5 ml Bottle EA EYE SCH ×2 (09:11→19:57)
[2021-04-15] MEDS: Polyethylene Glycol OPTH DROP 15 ML BOT EA EYE SCH ×4 (09:11→19:57)
[2021-04-15] MEDS: Lidocaine Patch Removal TOP SCH (09:12)
[2021-04-15] MEDS: Fluticasone Propionate Nasal Spray 16 gm Bottle NASAL SCH (10:36)
[2021-04-15 17:28] LABS: SARS-CoV-2 PCR by NAA Not Detected (NotDetected)
[2021-04-15] MEDS: Lidocaine 5% Patch TD SCH (19:56)
[2021-04-15] MEDS: Melatonin 3 MG TAB PO PRN (19:56)
[2021-04-15] MEDS: Atorvastatin Calcium 10 MG TAB PO SCH (19:57)
[2021-04-16] MEDS: Acetaminophen 325 MG TAB PO PRN (05:40)
[2021-04-16] MEDS: Levothyroxine Sodium 75 MCG TAB PO SCH (05:41)
[2021-04-16 08:11] LABS: Anion Gap 15 mmol/L (10-20); BUN (Urea Nitrogen) 26 mg/dL (9.8-20.1); BUN/Creatinine Ratio 9.22; Calc. Creatinine Clearance 12 mL/min (70-130); Calcium 8.6 mg/dL (7.8-10.44); Carbon Dioxide 23 mmol/L (23-31); Chloride 101 mmol/L (98-107); Glucose 111 mg/dL (83-110); Phosphorus 2.9 mg/dL (2.3-4.7); Potassium 3.9 mmol/L (3.5-5.1); Sodium 135 mmol/L (136-145)
[2021-04-16 08:12] LABS: Mean Platelet Volume 7.3 fL (7.4-10.4); Platelet Count 185 thou/uL (130-400); RBC Distribution Width 15.7 % (11.5-14.5); Red Blood Cell (RBC) Count 3.34 mill/uL (4.20-5.40); White Blood Cell (WBC) Count 4.9 thou/uL (4.8-10.8)
[2021-04-16] MEDS: Cholecalciferol 1,000 UNITS (25 MCG) TAB PO SCH (08:39)
[2021-04-16] MEDS: Cyanocobalamin (Vitamin B-12) 1,000 MCG TAB PO SCH (08:39)
[2021-04-16] MEDS: Ascorbic Acid 500 mg Chewable Tablet PO SCH (08:40)
[2021-04-16] MEDS: Calcium Carbonate 600 MG + Vit D TAB PO SCH (08:40)
[2021-04-16] MEDS: Megestrol Acetate 800 MG/20 ML UDCUP PO SCH (08:41)
[2021-04-16] MEDS: Divalproex Sodium 125 mg Sprinkle Capsule PO SCH ×2 (09:02→21:13)
[2021-04-16] MEDS: Fluticasone Propionate Nasal Spray 16 gm Bottle NASAL SCH (09:02)
[2021-04-16] MEDS: Heparin 5,000 UNITS/ML VIAL SC SCH ×3 (09:03→21:13)
[2021-04-16] MEDS: Amiodarone 200 MG TAB PO SCH (09:03)
[2021-04-16] MEDS: Anastrozole 1 MG TAB PO SCH (09:04)
[2021-04-16] MEDS: Polyethylene Glycol OPTH DROP 15 ML BOT EA EYE SCH ×5 (09:04→21:15)
[2021-04-16] MEDS: Lidocaine Patch Removal TOP SCH (09:05)
[2021-04-16] MEDS: Ketotifen Fumarate 0.025% Ophth Soln 5 ml Bottle EA EYE SCH ×2 (09:58→21:14)
[2021-04-16 10:41] LABS: Anisocytosis SLIGHT = 6-15 cells (100X) (0-5/hpf); Eosinophils 8 % (0-10); Large Platelets SLIGHT; Lymphocytes 18 % (21-51); MDiff Complete? YES; Monocytes 17 % (0-10); Neutrophil 56 % (42-75); Platelet Morphology Comment Appears Adequate; Reactive Lymphocytes 1 % (0-10); Vacuoles SLIGHT
[2021-04-16] MEDS ORDERED: diphenhydrAMINE 50 MG/ML VIAL IVP SCH ×2 (10:45→13:45)
[2021-04-16] MEDS: Lidocaine 5% Patch TD SCH (21:13)
[2021-04-16] MEDS: Atorvastatin Calcium 10 MG TAB PO SCH (21:13)
[2021-04-17] MEDS: Acetaminophen 325 MG TAB PO PRN ×2 (03:15→14:25)
[2021-04-17] MEDS: Levothyroxine Sodium 75 MCG TAB PO SCH (05:26)
[2021-04-17 06:53] LABS: #Eosinphils 0.2 thou/uL (0.0-0.7); #Lymphocytes 1.1 thou/uL (1.20-3.40); #Monocytes 0.6 thou/uL (0.11-0.59); #Neutrophils 3.3 thou/uL (1.40-6.50); %Basophils 0.6 % (0.0-1.0); %Eosinophils 4.4 % (0.0-10.0); %Lymphocytes 20.4 % (21.0-51.0); %Monocytes 11.5 % (0.0-10.0); %Neutrophils 63.1 % (42.0-75.0); Hemoglobin 12.1 g/dL (12.0-16.0); Mean Corpuscular HGB CONC 32.7 g/dL (32.0-36.0); Mean Corpuscular Hemoglobin 35.8 pg (27.0-31.0); Platelet Count 186 thou/uL (130-400); RBC Distribution Width 15.6 % (11.5-14.5); Red Blood Cell (RBC) Count 3.37 mill/uL (4.20-5.40); White Blood Cell (WBC) Count 5.2 thou/uL (4.8-10.8)
[2021-04-17] MEDS: Amiodarone 200 MG TAB PO SCH (08:19)
[2021-04-17] MEDS: Cyanocobalamin (Vitamin B-12) 1,000 MCG TAB PO SCH (08:19)
[2021-04-17] MEDS: Divalproex Sodium 125 mg Sprinkle Capsule PO SCH ×2 (08:19→21:47)
[2021-04-17] MEDS: Cholecalciferol 1,000 UNITS (25 MCG) TAB PO SCH (08:19)
[2021-04-17] MEDS: Ascorbic Acid 500 mg Chewable Tablet PO SCH (08:19)
[2021-04-17] MEDS: Calcium Carbonate 600 MG + Vit D TAB PO SCH (08:19)
[2021-04-17] MEDS: Heparin 5,000 UNITS/ML VIAL SC SCH ×2 (08:19→22:00)
[2021-04-17] MEDS: Ketotifen Fumarate 0.025% Ophth Soln 5 ml Bottle EA EYE SCH ×2 (08:20→21:48)
[2021-04-17] MEDS: Fluticasone Propionate Nasal Spray 16 gm Bottle NASAL SCH (08:20)
[2021-04-17] MEDS: Anastrozole 1 MG TAB PO SCH (08:20)
[2021-04-17] MEDS: Polyethylene Glycol OPTH DROP 15 ML BOT EA EYE SCH ×4 (08:22→21:48)
[2021-04-17] MEDS: Megestrol Acetate 800 MG/20 ML UDCUP PO SCH (08:22)
[2021-04-17] MEDS: Lidocaine Patch Removal TOP SCH (08:23)
[2021-04-17 09:50] LABS: Anion Gap 14 mmol/L (10-20); BUN (Urea Nitrogen) 21 mg/dL (9.8-20.1); Calc. Creatinine Clearance 16 mL/min (70-130); Calcium 8.3 mg/dL (7.8-10.44); Carbon Dioxide 24 mmol/L (23-31); Chloride 98 mmol/L (98-107); Glucose 122 mg/dL (83-110); Potassium 3.6 mmol/L (3.5-5.1); Sodium 132 mmol/L (136-145)
[2021-04-17] MEDS ORDERED: diphenhydrAMINE 50 MG/ML VIAL IVP SCH (15:00)
[2021-04-17] MEDS: Atorvastatin Calcium 10 MG TAB PO SCH (21:47)
[2021-04-17] MEDS: Capsaicin 0.025% Cream 60 gm Tube TOP PRN (21:49)
[2021-04-17] MEDS: Lidocaine 5% Patch TD SCH (22:01)
[2021-04-17] MEDS: Melatonin 3 MG TAB PO PRN (22:01)
[2021-04-18] MEDS: Levothyroxine Sodium 75 MCG TAB PO SCH (05:24)
[2021-04-18] MEDS: Acetaminophen 325 MG TAB PO PRN (05:25)
[2021-04-18 06:47] LABS: #Eosinphils 0.1 thou/uL (0.0-0.7); #Lymphocytes 1.1 thou/uL (1.20-3.40); #Monocytes 0.7 thou/uL (0.11-0.59); #Neutrophils 3.2 thou/uL (1.40-6.50); %Basophils 0.5 % (0.0-1.0); %Eosinophils 2.8 % (0.0-10.0); %Monocytes 12.7 % (0.0-10.0); Hemoglobin 11.8 g/dL (12.0-16.0); Mean Corpuscular HGB CONC 34.4 g/dL (32.0-36.0); Mean Platelet Volume 7.3 fL (7.4-10.4); Platelet Count 170 thou/uL (130-400); RBC Distribution Width 15.2 % (11.5-14.5); Red Blood Cell (RBC) Count 3.19 mill/uL (4.20-5.40); White Blood Cell (WBC) Count 5.2 thou/uL (4.8-10.8)
[2021-04-18 07:05] LABS: Anion Gap 11 mmol/L (10-20); BUN (Urea Nitrogen) 21 mg/dL (9.8-20.1); Calc. Creatinine Clearance 18 mL/min (70-130); Calcium 8.4 mg/dL (7.8-10.44); Carbon Dioxide 25 mmol/L (23-31); Chloride 100 mmol/L (98-107); Glucose 88 mg/dL (83-110); Sodium 132 mmol/L (136-145)
[2021-04-18] MEDS: Megestrol Acetate 800 MG/20 ML UDCUP PO SCH (09:21)
[2021-04-18] MEDS: Amiodarone 200 MG TAB PO SCH (09:22)
[2021-04-18] MEDS: Torsemide 20 MG TAB PO SCH (09:22)
[2021-04-18] MEDS: Calcium Carbonate 600 MG + Vit D TAB PO SCH (09:22)
[2021-04-18] MEDS: Cholecalciferol 1,000 UNITS (25 MCG) TAB PO SCH (09:22)
[2021-04-18] MEDS: Cyanocobalamin (Vitamin B-12) 1,000 MCG TAB PO SCH (09:22)
[2021-04-18] MEDS: Ascorbic Acid 500 mg Chewable Tablet PO SCH (09:22)
[2021-04-18] MEDS: Heparin 5,000 UNITS/ML VIAL SC SCH (09:23)
[2021-04-18] MEDS: Anastrozole 1 MG TAB PO SCH (09:25)
[2021-04-18] MEDS: Ketotifen Fumarate 0.025% Ophth Soln 5 ml Bottle EA EYE SCH ×2 (09:25→21:00)
[2021-04-18] MEDS: Fluticasone Propionate Nasal Spray 16 gm Bottle NASAL SCH (09:26)
[2021-04-18] MEDS: Lidocaine Patch Removal TOP SCH (09:26)
[2021-04-18] MEDS: Polyethylene Glycol OPTH DROP 15 ML BOT EA EYE SCH ×4 (09:26→21:00)
[2021-04-18] MEDS: Capsaicin 0.025% Cream 60 gm Tube TOP PRN (09:44)
[2021-04-18] MEDS ORDERED: hydrOXYzine 10 MG TAB PO SCH (11:42)
[2021-04-18] MEDS: Divalproex Sodium 125 mg Sprinkle Capsule PO SCH ×2 (11:44→20:58)
[2021-04-18 13:19] VITALS: BMI 24.5
[2021-04-18] MEDS: Atorvastatin Calcium 10 MG TAB PO SCH (20:58)
[2021-04-18] MEDS: Lidocaine 5% Patch TD SCH (20:59)
[2021-04-19] MEDS: Levothyroxine Sodium 75 MCG TAB PO SCH (06:42)
[2021-04-19 07:34] VITALS: BP 131/75; TEMP 98.2
[2021-04-19 09:12] LABS: Anion Gap 13 mmol/L (10-20); BUN (Urea Nitrogen) 20 mg/dL (9.8-20.1); Calc. Creatinine Clearance 18 mL/min (70-130); Calcium 8.3 mg/dL (7.8-10.44); Carbon Dioxide 24 mmol/L (23-31); Chloride 101 mmol/L (98-107); Glucose 89 mg/dL (83-110); Potassium 3.7 mmol/L (3.5-5.1); Sodium 134 mmol/L (136-145)
[2021-04-19] MEDS: Cholecalciferol 1,000 UNITS (25 MCG) TAB PO SCH (09:20)
[2021-04-19] MEDS: Ascorbic Acid 500 mg Chewable Tablet PO SCH (09:20)
[2021-04-19] MEDS: Calcium Carbonate 600 MG + Vit D TAB PO SCH (09:20)
[2021-04-19] MEDS: Anastrozole 1 MG TAB PO SCH (09:20)
[2021-04-19] MEDS: Torsemide 20 MG TAB PO SCH (09:20)
[2021-04-19] MEDS: Lidocaine Patch Removal TOP SCH (09:21)
[2021-04-19] MEDS: Fluticasone Propionate Nasal Spray 16 gm Bottle NASAL SCH (09:22)
[2021-04-19] MEDS: Megestrol Acetate 800 MG/20 ML UDCUP PO SCH (09:26)
[2021-04-19] MEDS: Cyanocobalamin (Vitamin B-12) 1,000 MCG TAB PO SCH (09:26)
[2021-04-19] MEDS: Divalproex Sodium 125 mg Sprinkle Capsule PO SCH (09:26)
[2021-04-19] MEDS: Amiodarone 200 MG TAB PO SCH (09:26)
[2021-04-19] MEDS: Polyethylene Glycol OPTH DROP 15 ML BOT EA EYE SCH ×3 (09:27→17:13)
[2021-04-19] MEDS: Ketotifen Fumarate 0.025% Ophth Soln 5 ml Bottle EA EYE SCH (09:27)
[2021-04-19] MEDS ORDERED: Milk Of Magnesia 30 ML UDCUP PO SCH (09:30)
[2021-04-19] MEDS: Acetaminophen 325 MG TAB PO PRN (16:02)
== END 2021-04-19 20:01 | DRG 291 ==
LOC: ERS 10:34 → 2NO 12:46 → T4-B 04-12 16:58
PROVIDERS: ADMIT Family Medicine; ATTEND Family Medicine
DX: I13.0 Hypertensive heart and chronic kidney disease with heart failure and stage 1 through stage 4 chronic kidney disease, or unspecified chronic kidney disease (principal); I50.43 Acute on chronic combined systolic (congestive) and diastolic (congestive) heart failure; Z66 Do not resuscitate; Z20.822 Contact with and (suspected) exposure to COVID-19; N17.9 Acute kidney failure, unspecified; N39.0 Urinary tract infection, site not specified; N18.4 Chronic kidney disease, stage 4 (severe); F41.9 Anxiety disorder, unspecified; I48.0 Paroxysmal atrial fibrillation; E87.6 Hypokalemia; R79.89 Other specified abnormal findings of blood chemistry; G62.9 Polyneuropathy, unspecified; E03.9 Hypothyroidism, unspecified; K21.9 Gastro-esophageal reflux disease without esophagitis; E78.5 Hyperlipidemia, unspecified; F03.90 Unspecified dementia, unspecified severity, without behavioral disturbance, psychotic disturbance, mood disturbance, and anxiety; R55 Syncope and collapse; L89.019 Pressure ulcer of right elbow, unspecified stage; R94.31 Abnormal electrocardiogram [ECG] [EKG]; D75.89 Other specified diseases of blood and blood-forming organs; R29.6 Repeated falls; D63.1 Anemia in chronic kidney disease; S00.83XA Contusion of other part of head, initial encounter; W18.30XA Fall on same level, unspecified, initial encounter; R42 Dizziness and giddiness; R41.82 Altered mental status, unspecified; B96.1 Klebsiella pneumoniae [K. pneumoniae] as the cause of diseases classified elsewhere; Z88.1 Allergy status to other antibiotic agents; Z88.0 Allergy status to penicillin; Z88.2 Allergy status to sulfonamides; Z88.8 Allergy status to other drugs, medicaments and biological substances; Z79.82 Long term (current) use of aspirin; Z79.890 Hormone replacement therapy; Z79.899 Other long term (current) drug therapy; Z95.0 Presence of cardiac pacemaker; Z82.5 Family history of asthma and other chronic lower respiratory diseases; Z80.8 Family history of malignant neoplasm of other organs or systems; Z80.49 Family history of malignant neoplasm of other genital organs; Z82.3 Family history of stroke; Z82.49 Family history of ischemic heart disease and other diseases of the circulatory system; Z85.3 Personal history of malignant neoplasm of breast; Z92.21 Personal history of antineoplastic chemotherapy; Z92.3 Personal history of irradiation; Z90.12 Acquired absence of left breast and nipple; Z90.710 Acquired absence of both cervix and uterus
CPT/HCPCS: 36415; 36416; 70450; 71045; 80048; 80053; 80069; 81003; 81015; 82553; 82570; 83735; 83880; 84156; 84300; 84484; 84540; 85025; 87077; 87086; 87186; 93005; 96365; 96375; J1200; J1644; J1940; J3475; J3480; J7120; Q0169; U0003; U0005

== ENCOUNTER 2021-04-30 19:07 | Inpatient (IN) | payer MEDICARE ==
[2021-04-30] MEDS ORDERED: Acetaminophen 650 MG Suppository ONE (20:15)
[2021-04-30 20:24] LABS: Band 9 % (5-11); Lymphocytes 6 % (21-51); MDiff Complete? YES; Macrocytosis SLIGHT = 6-15 cells (100X) (0-5/hpf); Mean Corpuscular HGB CONC 33.8 g/dL (32.0-36.0); Mean Corpuscular Hemoglobin 36.7 pg (27.0-31.0); Mean Platelet Volume 8.4 fL (7.4-10.4); Monocytes 16 % (0-10); Neutrophil 69 % (42-75); Nucleated RBC 1 % (0); Platelet Count 74 thou/uL (130-400); Platelet Morphology Comment Appears Decreased; RBC Distribution Width 16.6 % (11.5-14.5); Red Blood Cell (RBC) Count 4.09 mill/uL (4.20-5.40); White Blood Cell (WBC) Count 11.5 thou/uL (4.8-10.8)
[2021-04-30 20:35] LABS: ALT (SGPT) 355 U/L (8-55); AST (SGOT) 373 U/L (5-34); Albumin 3.2 g/dL (3.4-4.8); Alkaline Phosphatase 128 U/L (40-110); Anion Gap 22 mmol/L (10-20); BUN (Urea Nitrogen) 85 mg/dL (9.8-20.1); Bilirubin, Total 1.9 mg/dL (0.2-1.2); Calc. Creatinine Clearance 0 mL/min (70-130); Calcium 8.7 mg/dL (7.8-10.44); Carbon Dioxide 20 mmol/L (23-31); Chloride 107 mmol/L (98-107); Globulin 4.4 g/dL (2.4-3.5); Glucose 103 mg/dL (83-110); Potassium 4.4 mmol/L (3.5-5.1); Protein, Total 7.6 g/dL (5.8-8.1); Sodium 145 mmol/L (136-145)
[2021-04-30] MEDS ORDERED: Cefepime 2 GM VIAL ONE (20:56)
[2021-04-30 20:59] LABS: CKMB 2.1 ng/mL (0-6.6)
[2021-04-30 21:12] LABS: Actual Bicarbonate (HCO3v) 19 mEq/L (22-28); Analyzer IN Cardio ER; Base Excess -2.5 mEq/L (-2.0 to +3.0); Chloride (VBG) 107 mmol/L (98-106); Hemoglobin (Hb) 16.2 g/dL (11.7-16.1); Potassium (VBG) 4.27 mmol/L (3.70-5.30); Sodium 144.6 mmol/L (133-146); pH (venous) 7.47 (7.32-7.43)
[2021-04-30 22:03] LABS: Bacteria/HPF 2+ HPF (None Seen); Bilirubin Negative (Negative); Blood, Urine 2+ (Negative); Clarity Turbid (Clear); Glucose, Urine (Dipstick) Normal (Negative); Ketone, Urine Trace mg/dL (Negative); Leukocyte 500 Leu/uL (Negative); Nitrite Negative (Negative); Protein, Urine (Dipstick) 20 mg/dL (Neg-Trace); Renal Epithelial 0-3 HPF (None Seen); Specific Gravity, Urine 1.019 (1.002-1.036); Squamous Epithelial 0-3 HPF (0-3); Transitional Epithelial 0-3 HPF (None Seen); Urobilinogen Normal mg/dL (Less than 2); WBC/HPF Greater than 50 HPF (0-3)
[2021-04-30] MEDS ORDERED: Vancomycin 1.5 GRAM/300 ML BAG 1.5 GM in Premix Bag 1 BAG IVPB SCH (22:15)
[2021-04-30] MEDS ORDERED: Lactated Ringer's 1,000 ML IV SCH (22:15)
[2021-04-30] MEDS ORDERED: Acetaminophen 650 MG Suppository PR PRN (22:36)
[2021-04-30 23:15] LABS: Troponin I 0.201 ng/mL (< 0.028)
[2021-04-30 23:30] LABS: SARS-CoV-2 NAA Rapid Test Not Detected (NotDetected)
[2021-05-01 00:43] VITALS: BMI 20.4
[2021-05-01 00:47] LABS: Lactic Acid 2.7 mmol/L (0.5-2.2)
[2021-05-01 02:53] LABS: Band 5 % (5-11); Hemoglobin 14.4 g/dL (12.0-16.0); Lymphocytes 19 % (21-51); MDiff Complete? YES; Macrocytosis SLIGHT = 6-15 cells (100X) (0-5/hpf); Mean Corpuscular HGB CONC 32.3 g/dL (32.0-36.0); Mean Corpuscular Hemoglobin 35.7 pg (27.0-31.0); Mean Platelet Volume 8.9 fL (7.4-10.4); Neutrophil 76 % (42-75); Platelet Count 46 thou/uL (130-400); Platelet Morphology Comment Appears Decreased; RBC Distribution Width 16.9 % (11.5-14.5); Red Blood Cell (RBC) Count 4.03 mill/uL (4.20-5.40); White Blood Cell (WBC) Count 12.2 thou/uL (4.8-10.8)
[2021-05-01 03:24] LABS: Troponin I 0.323 ng/mL (< 0.028)
[2021-05-01 03:29] LABS: Chloride 111 mmol/L (98-107); Potassium 4.1 mmol/L (3.5-5.1); Sodium 145 mmol/L (136-145)
[2021-05-01 03:47] LABS: Albumin 2.8 g/dL (3.4-4.8)
[2021-05-01 03:49] LABS: Calcium 8.1 mg/dL (7.8-10.44); Glucose 105 mg/dL (83-110)
[2021-05-01 03:50] LABS: Globulin 3.8 g/dL (2.4-3.5); Protein, Total 6.6 g/dL (5.8-8.1)
[2021-05-01 03:51] LABS: Anion Gap 23 mmol/L (10-20); Bilirubin, Total 1.7 mg/dL (0.2-1.2); Carbon Dioxide 15 mmol/L (23-31)
[2021-05-01 03:52] LABS: Alkaline Phosphatase 105 U/L (40-110)
[2021-05-01 03:53] LABS: Calc. Creatinine Clearance 9 mL/min (70-130)
[2021-05-01 03:54] LABS: AST (SGOT) 265 U/L (5-34); BUN (Urea Nitrogen) 86 mg/dL (9.8-20.1)
[2021-05-01 03:55] LABS: ALT (SGPT) 287 U/L (8-55)
[2021-05-01 06:24] LABS: INR-International Normal Ratio 1.9; PTT 39.4 sec (22.9-36.1); Prothrombin Time 22.3 sec (12.0-14.7)
[2021-05-01] MEDS ORDERED: Lactated Ringer's 1,000 ML IV SCH (06:25)
[2021-05-01 06:28] LABS: Band 5 % (5-11); Hemoglobin 13.5 g/dL (12.0-16.0); Lymphocytes 11 % (21-51); MDiff Complete? YES; Mean Corpuscular HGB CONC 31.6 g/dL (32.0-36.0); Mean Corpuscular Hemoglobin 36.1 pg (27.0-31.0); Mean Platelet Volume 9.2 fL (7.4-10.4); Neutrophil 84 % (42-75); Nucleated RBC 1 % (0); Platelet Count 59 thou/uL (130-400); Platelet Morphology Comment Appears Decreased; RBC Distribution Width 16.7 % (11.5-14.5); RBC Morphology Normal; Red Blood Cell (RBC) Count 3.75 mill/uL (4.20-5.40); White Blood Cell (WBC) Count 11.3 thou/uL (4.8-10.8)
[2021-05-01 06:52] LABS: Troponin I 0.237 ng/mL (< 0.028)
[2021-05-01 07:46] LABS: Lactic Acid 2.9 mmol/L (0.5-2.2)
[2021-05-01] MEDS ORDERED: Cefepime 1 GM in Sodium Chloride 0.9% 100 ML IVPB SCH (09:00)
[2021-05-01] MEDS: Pantoprazole 40 MG VIAL IVP SCH (13:09)
[2021-05-01 16:33] LABS: Chloride 115 mmol/L (98-107); Potassium 4.8 mmol/L (3.5-5.1); Sodium 146 mmol/L (136-145)
[2021-05-01 16:34] LABS: Calcium 8.5 mg/dL (7.8-10.44); Glucose 89 mg/dL (83-110)
[2021-05-01 16:36] LABS: Anion Gap 21 mmol/L (10-20); Carbon Dioxide 15 mmol/L (23-31)
[2021-05-01 16:38] LABS: BUN (Urea Nitrogen) 80 mg/dL (9.8-20.1); Calc. Creatinine Clearance 11 mL/min (70-130)
[2021-05-01] MEDS ORDERED: Sodium Bicarbonate 100 MEQ in Dextrose 5% in Water 1,000 ML IV SCH (20:00)
[2021-05-01] MEDS: Cefepime 1 GM in Sodium Chloride 0.9% 100 ML IVPB SCH (20:25)
[2021-05-01] MEDS ORDERED: Vancomycin 1 GM in Premix Bag 1 BAG IVPB SCH (23:00)
[2021-05-01 23:35] LABS: Vancomycin, Random 20.1 ug/mL (See Comment)
[2021-05-02 04:24] LABS: Vancomycin, Random 15.3 ug/mL (See Comment)
[2021-05-02 04:34] LABS: ALT (SGPT) 174 U/L (8-55); AST (SGOT) 119 U/L (5-34); Albumin 2.1 g/dL (3.4-4.8); Alkaline Phosphatase 75 U/L (40-110); Anion Gap 15 mmol/L (10-20); BUN (Urea Nitrogen) 78 mg/dL (9.8-20.1); Bilirubin, Total 1.4 mg/dL (0.2-1.2); Calc. Creatinine Clearance 13 mL/min (70-130); Carbon Dioxide 27 mmol/L (23-31); Chloride 100 mmol/L (98-107); Globulin 3.2 g/dL (2.4-3.5); Glucose 721 mg/dL (83-110); Potassium 3.2 mmol/L (3.5-5.1); Protein, Total 5.3 g/dL (5.8-8.1); Sodium 139 mmol/L (136-145)
[2021-05-02] MEDS ORDERED: Vancomycin HCl 500 MG in Sodium Chloride 0.9% 100 ML IVPB SCH (06:00)
[2021-05-02 06:03] LABS: #Lymphocytes 1.2 thou/uL (1.20-3.40); #Monocytes 0.8 thou/uL (0.11-0.59); #Neutrophils 8.4 thou/uL (1.40-6.50); %Basophils 0.1 % (0.0-1.0); %Eosinophils 0.3 % (0.0-10.0); %Lymphocytes 11.6 % (21.0-51.0); %Monocytes 7.4 % (0.0-10.0); %Neutrophils 80.6 % (42.0-75.0); Hemoglobin 14.2 g/dL (12.0-16.0); Mean Corpuscular HGB CONC 31.9 g/dL (32.0-36.0); Mean Corpuscular Hemoglobin 36.2 pg (27.0-31.0); Mean Platelet Volume 10.1 fL (7.4-10.4); Platelet Count 45 thou/uL (130-400); RBC Distribution Width 17.2 % (11.5-14.5); Red Blood Cell (RBC) Count 3.91 mill/uL (4.20-5.40); White Blood Cell (WBC) Count 10.4 thou/uL (4.8-10.8)
[2021-05-02 06:31] LABS: ALT (SGPT) 209 U/L (8-55); AST (SGOT) 141 U/L (5-34); Albumin 2.6 g/dL (3.4-4.8); Alkaline Phosphatase 99 U/L (40-110); Anion Gap 18 mmol/L (10-20); BUN (Urea Nitrogen) 78 mg/dL (9.8-20.1); Bilirubin, Total 1.7 mg/dL (0.2-1.2); Calc. Creatinine Clearance 12 mL/min (70-130); Calcium 8.1 mg/dL (7.8-10.44); Carbon Dioxide 19 mmol/L (23-31); Chloride 114 mmol/L (98-107); Globulin 4.1 g/dL (2.4-3.5); Glucose 123 mg/dL (83-110); Potassium 3.6 mmol/L (3.5-5.1); Protein, Total 6.7 g/dL (5.8-8.1); Sodium 147 mmol/L (136-145)
[2021-05-02] MEDS: Potassium Chloride 20 MEQ in Premix Bag 1 BAG IVPB SCH ×2 (08:58→15:05)
[2021-05-02] MEDS: Pantoprazole 40 MG VIAL IVP SCH (08:59)
[2021-05-02] MEDS: Cefepime 1 GM in Sodium Chloride 0.9% 100 ML IVPB SCH (20:00)
[2021-05-03 04:24] LABS: Vancomycin, Random 19.9 ug/mL (See Comment)
[2021-05-03] MEDS ORDERED: Vancomycin HCl 250 MG in Sodium Chloride 0.9% 100 ML IVPB SCH (06:00)
[2021-05-03 07:42] LABS: Anion Gap 16 mmol/L (10-20); BUN (Urea Nitrogen) 86 mg/dL (9.8-20.1); Calc. Creatinine Clearance 14 mL/min (70-130); Calcium 8.2 mg/dL (7.8-10.44); Carbon Dioxide 22 mmol/L (23-31); Chloride 117 mmol/L (98-107); Glucose 119 mg/dL (83-110); Potassium 3.9 mmol/L (3.5-5.1); Sodium 151 mmol/L (136-145)
[2021-05-03] MEDS: Pantoprazole 40 MG VIAL IVP SCH (08:47)
[2021-05-03] MEDS ORDERED: WATER IV SCH (10:00)
[2021-05-03] MEDS ORDERED: SODIUM BICARBONATE IV SCH (10:00)
[2021-05-03] MEDS ORDERED: DEXTROSE 5% IV SCH (10:00)
[2021-05-03] MEDS: Morphine 4 MG/ML VIAL SLOW IVP PRN ×2 (14:49→20:21)
[2021-05-04] MEDS: Morphine 4 MG/ML VIAL SLOW IVP PRN (08:40)
[2021-05-04] MEDS ORDERED: Dextrose 5% in Water 1,000 ML IV SCH (09:30)
[2021-05-04] MEDS ORDERED: Lorazepam 2 MG/ML VIAL SLOW IVP PRN (11:52)
[2021-05-04 16:20] VITALS: TEMP 97.3
== END 2021-05-04 17:08 | disposition hospice, inpatient (51) | DRG 871 ==
LOC: ERS 19:07 → IMCU/EMU 21:41
PROVIDERS: ADMIT Family Medicine; ATTEND Family Medicine
DX: A41.9 Sepsis, unspecified organism (principal); J18.9 Pneumonia, unspecified organism; G93.41 Metabolic encephalopathy; I21.4 Non-ST elevation (NSTEMI) myocardial infarction; Z66 Do not resuscitate; Z51.5 Encounter for palliative care; K72.00 Acute and subacute hepatic failure without coma; I50.23 Acute on chronic systolic (congestive) heart failure; N17.9 Acute kidney failure, unspecified; N39.0 Urinary tract infection, site not specified; I13.0 Hypertensive heart and chronic kidney disease with heart failure and stage 1 through stage 4 chronic kidney disease, or unspecified chronic kidney disease; E87.2 Acidosis; I31.3 Pericardial effusion (noninflammatory); E87.0 Hyperosmolality and hypernatremia; N18.4 Chronic kidney disease, stage 4 (severe); Z20.822 Contact with and (suspected) exposure to COVID-19; I48.0 Paroxysmal atrial fibrillation; K21.9 Gastro-esophageal reflux disease without esophagitis; E03.9 Hypothyroidism, unspecified; D69.6 Thrombocytopenia, unspecified; F03.90 Unspecified dementia, unspecified severity, without behavioral disturbance, psychotic disturbance, mood disturbance, and anxiety; R65.20 Severe sepsis without septic shock; F41.9 Anxiety disorder, unspecified; R62.7 Adult failure to thrive; G62.9 Polyneuropathy, unspecified; E78.5 Hyperlipidemia, unspecified; Z88.0 Allergy status to penicillin; Z88.2 Allergy status to sulfonamides; Z88.8 Allergy status to other drugs, medicaments and biological substances; Z79.899 Other long term (current) drug therapy; Z85.3 Personal history of malignant neoplasm of breast; Z90.12 Acquired absence of left breast and nipple; Z68.20 Body mass index [BMI] 20.0-20.9, adult; Z90.710 Acquired absence of both cervix and uterus; Z95.0 Presence of cardiac pacemaker
CPT/HCPCS: 36415; 36416; 70450; 71045; 74176; 80048; 80053; 80202; 81015; 82553; 82805; 83605; 83880; 84145; 84484; 85007; 85025; 85027; 85060; 85610; 85730; 87040; 87077; 87086; 93005; 96365; 96367; C9113; J0692; J2060; J2270; J3370; J3480; J3490; J7070; J7120; U0002

== ENCOUNTER 2021-05-04 17:36 | Inpatient (IN) | payer OTHER ==
[2021-05-04] MEDS ORDERED: Morphine 4 MG/ML VIAL SLOW IVP PRN (17:51)
[2021-05-04] MEDS ORDERED: Lorazepam 2 MG/ML VIAL SLOW IVP PRN ×2 (17:56→17:57)
[2021-05-04] MEDS ORDERED: Scopolamine 1.5 mg/72 hour Patch TOP SCH (18:00)
[2021-05-04 18:14] VITALS: BMI 20.4
[2021-05-04 19:16] VITALS: TEMP 97.6
[2021-05-04] MEDS: Morphine 4 MG/ML VIAL SLOW IVP PRN (21:44)
[2021-05-04 23:22] VITALS: BP 149/78
[2021-05-05] MEDS: Morphine 4 MG/ML VIAL SLOW IVP PRN (01:16)
== END 2021-05-05 09:10 | disposition expired | DRG 951 ==
LOC: IMCU/EMU 17:36
PROVIDERS: ADMIT Internal Medicine; ATTEND Internal Medicine
DX: Z51.5 Encounter for palliative care (principal); I21.4 Non-ST elevation (NSTEMI) myocardial infarction; I13.0 Hypertensive heart and chronic kidney disease with heart failure and stage 1 through stage 4 chronic kidney disease, or unspecified chronic kidney disease; R00.1 Bradycardia, unspecified; D63.1 Anemia in chronic kidney disease; E78.5 Hyperlipidemia, unspecified; N18.9 Chronic kidney disease, unspecified; I48.91 Unspecified atrial fibrillation; F41.9 Anxiety disorder, unspecified; K21.9 Gastro-esophageal reflux disease without esophagitis; I50.9 Heart failure, unspecified; Z91.048 Other nonmedicinal substance allergy status; Z88.8 Allergy status to other drugs, medicaments and biological substances; Z88.2 Allergy status to sulfonamides; Z88.0 Allergy status to penicillin; Z85.3 Personal history of malignant neoplasm of breast; Z87.01 Personal history of pneumonia (recurrent)
CPT/HCPCS: J2270